=== PATIENT | female | born 1960 | race African-American/Black ===

== ENCOUNTER 2017-02-04 15:50 | Observation (INO) | payer MEDICAID ==
--- NOTE | 2017-02-04 17:46 | ED Physician Documentation ---
PD HPI CHEST PAIN - Stated complaint Stated Complaint: CP/VOMIT - Chief complaint Chief Complaint: Cardiac - History obtained from History obtained from: Patient - History of Present Illness Timing - onset: Other (56-year-old woman with history of perioperative cardiac arrest after abdominal surgery, sounds like due to bradycardia per her description but no other known heart disease presents with 1 week of episodic nonexertional substernal chest pain radiating to the back that lasts for a few minutes at a time. It does not seem to be associated with eating or exertion. It is a sharp pain. She is currently pain-free. She has had about 6 episodes today. When it happens she becomes nauseous and vomits.) Review of Systems Constitutional: reports: Reviewed and negative Nose: denies: Rhinorrhea / runny nose, Congestion Cardiac: reports: Pedal edema (Chronic, unchanged). denies: Palpitations Respiratory: denies: Dyspnea, Cough GI: denies: Abdominal Pain PD PAST MEDICAL HISTORY - Past Medical History Respiratory: Asthma, Pneumonia - Past Surgical History Past Surgical History: Yes General: Cholecystectomy, Appendectomy, Gastric surgery, Hiatal hernia repair /CHEMIST FOOD: section, Hysterectomy - Present Medications Home Medications: Ambulatory Orders Medication Instructions Recorded Confirmed Albuterol Sulfate [Albuterol PRN 09/20/14 09/20/14 Sulfate Hfa] - Allergies Allergies/Adverse Reactions: Allergies Allergy/AdvReac Type Severity Reaction Status Date / Time morphine Allergy Headache Verified 02/04/17 16:21 Penicillins Allergy Rash Verified 02/04/17 16:21 - Social History Does the pt smoke?: Yes Smoking Status: Current some day smoker Does the pt drink ETOH?: No Does the pt have substance abuse?: No PD ED PE NORMAL - Vitals Vital signs reviewed: Yes - General General: Alert and oriented X 3, No acute distress - HEENT HEENT: PERRL, EOMI - Neck Neck: Supple, no meningeal sign, No bony TTP - Cardiac Cardiac: RRR, No murmur - Respiratory Respiratory: No respiratory distress, Clear bilaterally - Abdomen Abdomen: Non tender - Extremities Extremities: No deformity, No calf tenderness / cord - Neuro Neuro: Alert and oriented X 3, Normal speech - Psych Psych: Normal mood, Normal affect Results - Vitals Vitals: Vital Signs - 24 hr 02/04/17 02/04/17 02/04/17 16:18 18:45 19:05 Temperature 36.4 C L Heart Rate 65 64 59 L Respiratory 22 24 22 Rate Blood Pressure 155/76 H 156/100 H 149/90 H O2 Saturation 99 99 100 02/04/17 02/04/17 20:45 20:49 Temperature Heart Rate 62 66 Respiratory 17 15 Rate Blood Pressure 118/55 L 152/82 H O2 Saturation 98 100 Oxygen O2 Source Room air - EKG (time done) 1708 Rate: Rate (enter#) (56) Rhythm: NSR [place]: Normal Intervals: Normal MS QRS: Normal Ischemia: Normal ST segments Computer interpretation: Agree with computer 203 Rate: Rate (enter#) (55) Rhythm: NSR [place]: Normal Intervals: Normal MS QRS: Normal Ischemia: Normal ST segments Computer interpretation: Agree with computer - Labs Labs: Laboratory Tests 02/04/17 02/04/17 02/04/17 18:15 18:15 18:15 WBC 8.3 RBC 4.79 Hgb 13.2 Hct 40.0 MCV 83.6 MCH 27.6 MCHC 33.0 RDW 14.1 Plt Count 288 MPV 8.5 Neut # 4.4 Lymph # 2.6 [place] # 1.0 Eos # 0.1 Baso # 0.1 Absolute Nucleated RBC 0.00 Nucleated RBC % 0.1 Sodium 139 Potassium 3.6 Chloride 103 Carbon Dioxide 26 Anion Gap 10.0 BUN 13 Creatinine 0.7 Estimated GFR (MDRD) 104 Glucose 92 Calcium 9.3 Total Bilirubin 0.5 AST 22 ALT 12 Alkaline Phosphatase 70 Total Creatine Kinase 246 CK-MB (CK-2) 3.4 Troponin I < 0.04 Total Protein 7.8 Albumin 4.2 Globulin 3.6 Albumin/Globulin Ratio 1.2 Lipase 24 - Rads (name of study) 2v chest Radiology: EMP read contemporaneously (NAD) PD MEDICAL DECISION MAKING - ED course ED course: 56-year-old woman with atypical episodic pain, pain-free here with unremarkable EKG and negative biomarkers. Given her risk factors and history of cardiac arrest, I think she would be a good candidate for observation and I spoke with Dr. José, the hospitalist for observation at 7:35 PM. Departure - Departure Disposition: ED Place in Observation Clinical Impression: Atypical chest pain Condition: Stable
--- NOTE | 2017-02-04 18:09 | XRAY Preliminary Report ---
Exam: XR CHEST 2 VIEW PA/LAT IMPRESSION: Normal 2-view chest radiography. [facility] SITE ID: [id number]
--- NOTE | 2017-02-04 18:21 | XRAY Report ---
EXAM: CHEST RADIOGRAPHY EXAM DATE: 02/04/2017 05:59 PM. CLINICAL HISTORY: Chest pain. COMPARISON: 03/22/2016. TECHNIQUE: 2 views. FINDINGS: Lungs/Pleura: No focal opacities evident. No pleural effusion. No pneumothorax. Normal volumes. Mediastinum: Heart and mediastinal contours are unremarkable. Other: Mild scoliosis. IMPRESSION: Normal 2-view chest radiography. [facility] Referring Provider Line: [phone] SITE ID: [id number]
[2017-02-04 18:22] LABS: BASOPHILS # (AUTO) 0.1 10^3/uL (0.0-0.1); BASOPHILS % (AUTO) 1.6 %; EOSINOPHILS # (AUTO) 0.1 10^3/uL (0.0-0.7); EOSINOPHILS % (AUTO) 1.8 %; HGB - HEMOGLOBIN 13.2 g/dL (12.0-16.0); LYMPHOCYTES # (AUTO) 2.6 10^3/uL (1.5-3.5); LYMPHOCYTES % (AUTO) 31.5 %; MEAN CORPUSCULAR HEMOGLOBIN 27.6 pg (27.0-31.0); MEAN CORPUSCULAR VOLUME 83.6 fL (81.0-99.0); MEAN PLATELET VOLUME 8.5 fL (7.9-10.8); MONOCYTES % (AUTO) 12.2 %; NEUTROPHILS # (AUTO) 4.4 10^3/uL (1.5-6.6); NEUTROPHILS % (AUTO) 52.9 %; NUCLEATED RED BLOOD CELLS AUTO 0.1 /100WBC; RED BLOOD COUNT 4.79 10^6/uL (4.20-5.40); RED CELL DISTRIBUTION WIDTH 14.1 % (12.0-15.0); UNCORRECTED WHITE BLOOD COUNT 8.3 x10^3/uL; WHITE BLOOD COUNT 8.3 x10^3/uL (4.8-10.8)
[2017-02-04 18:43] LABS: ALBUMIN/GLOBULIN RATIO 1.2 (1.0-2.2); BILIRUBIN,TOTAL 0.5 mg/dL (0.2-1.0); CALCIUM 9.3 mg/dL (8.5-10.3); CREATININE 0.7 mg/dL (0.4-1.0); POTASSIUM 3.6 mmol/L (3.5-5.0); TOTAL PROTEIN 7.8 g/dL (6.7-8.2)
[2017-02-04 18:48] LABS: TROPONIN I < 0.04 ng/mL (<0.49)
[2017-02-04 18:49] LABS: CREATINE KINASE MB 3.4 ng/mL (0.6-6.3)
[2017-02-04] MEDS ORDERED: ASPIRIN CHEW 81 MG TABLET PO STA (19:36)
[2017-02-04] MEDS ORDERED: ASPIRIN CHEW 81 MG TABLET ONE (19:47)
[2017-02-04] MEDS ORDERED: NITROGLYCERIN SL 0.4 MG TABLET SL STA ×2 (20:40→20:55)
[2017-02-04] MEDS ORDERED: PROCHLORPERAZINE 10 MG/2 ML VIAL IVP PRN (20:44)
[2017-02-04] MEDS ORDERED: ZOLPIDEM 5 MG TABLET PO PRN (20:44)
[2017-02-04] MEDS: NITROGLYCERIN 2% PASTE TOP SCH (21:24)
[2017-02-04] MEDS: ACETAMINOPHEN 325 MG TABLET PO PRN (21:25)
[2017-02-04] MEDS ORDERED: IOPAMIDOL-300 100 ML VIAL ONE (21:25)
[2017-02-04] MEDS ORDERED: IOPAMIDOL-300 100 ML VIAL IVP ONE (22:00)
[2017-02-05] MEDS: SODIUM CHLORIDE FLUSH 0.9% 10 ML SYRINGE IVP SCH ×3 (00:20→13:40)
[2017-02-05] MEDS: NICOTINE 14 MG PATCH TOP SCH ×2 (00:28→09:14)
[2017-02-05] MEDS: ALBUTEROL NEB 2.5 MG/3 ML INH PRN ×2 (00:40→07:25)
--- NOTE | 2017-02-05 00:54 | HISTORY & PHYSICAL EXAMINATION ---
DATE OF ADMISSION: 02/04/2017 HISTORY OF PRESENT ILLNESS: This is a 56-year-old white female with a history of smoking, asthma on p.r.n. inhaler as her only med, and a history of "3 intraoperative cardiac arrest": the patient reports that during a cholecystectomy she had a cardiac arrest, during appendectomy she had a cardiac arrest and during a ventral hernia surgery she had a cardiac arrest. She does describes having only EKGs and possibly one stress test only. The exact diagnoses with these "cardiac arrest" is not known. The patient remembers having a stress test approximately 9 years ago for unknown reasons and states that this was normal. She has never had an EP study or a coronary angiogram. The patient presents with a 1-week history of chest pain. She states that she develops a stabbing type of chest pain about the size of a silver dollar in the lower sternal area, which radiates through to her back that is associated with nausea. These would occur approximately once a day over the past 1 week until approximately 3-4 days ago, where they were occurring more frequently and associated with nausea and vomiting, possibly once with "coffe-ground appearance ". The longest duration was approximately 5 minutes. There was no associated body position, no specific activity, or p.o. intake that would lead to these episodes. She did not try taking any aspirin, nitrates, or antacids for these. With the episodes in the last 2 days there is also a more wide feeling of chest pressure across the precordium along with the more severe localized pain. Because the symptoms were longer and more frequent she presented to the emergency room today at the advice of her doctor's office whom she called today. In the emergency room, she was describing a 1/10 chest pain and as I was completing my evaluation in the emergency room she stated just suddenly that the discomfort increased to a 7/10 and she had to go from a sitting upright position on the gurney to lying down, which relieved her symptoms minimally. A sublingual nitroglycerin was then ordered to be given. There are no associated palpitations, shortness of breath, dizziness with these. She cannot remember if there is diaphoresis with these. Approximately 10 or more years ago, there was some similar type of stabbing chest pain, for which she was given prescriptions for sublingual nitroglycerin, but she no longer has these. MEDICATIONS AT HOME: Only albuterol inhaler. ALLERGIES: 1. MORPHINE. 2. PENICILLIN. SOCIAL HISTORY: She is a smoker of 1/2-1 pack a day. She drinks no alcohol. She denies any illicit drug use. REVIEW OF SYSTEMS: A comprehensive review of systems was performed and the pertinent positives and negatives are stated in the HPI and the remainder of the ROS is negative. FAMILY HISTORY: There is no history of diabetes or coronary disease. SURGICAL HISTORY: Cholecystectomy, appendectomy, ventral hernia repair, C- section, hysterectomy, gastric bypass. PHYSICAL EXAMINATION: GENERAL: Obese female, sitting upright in a gurney with one leg over the side. She is in no obvious distress initially and then suddenly developed 7/10 lower sternal chest pain without associated symptoms. VITAL SIGNS: Blood pressure 152/82, pulse 66 in sinus rhythm, afebrile. HEENT: Unremarkable except she is edentulous. NECK: Shows no JVD in a vertical position. No carotid bruits, no thyromegaly. CHEST: Lungs clear. No wheezing. HEART: Sounds normal. No audible murmurs. No heave or gallop. Normal bowel sounds. ABDOMEN: Soft. No guarding or rebound. No palpable organomegaly. EXTREMITIES: No clubbing, cyanosis, or edema. NEUROLOGIC: Neurologically grossly intact. EKG: Normal sinus rhythm and there is a biphasic T-wave in V4 and V5, otherwise within normal limits, and an EKG was ordered to be done during the chest pain and shows unchanged biphasic T waves in V4 and V5 and no other changes. LABS: Normal CMP, normal lipase. Troponin not detectable. Normal liver tests normal; normal CBC and differential no INR was done. Chest x-ray, normal cardiac size, no pulmonary pathology. ASSESSMENT/DIAGNOSES: 1. Chest pain. Rule out angina. Rule out epigastric etiology such as ulcer or pancreatitis given its associated vomiting and radiation through to the back. Aortic aneurysm or dissection is doubtful given no risk factors for this, such as hypertension or family history of cardiovascular disease. 2. History of "cardiac arrest" with 3 different abdominal surgeries. The final diagnosis of these descriptions is not known. 3. Smoking. 4. Asthma, on p.r.n. inhaler. PLAN: Place the patient in Observation status on telemetry. Cycle troponins to rule out [place]. Follow her EKG for changes. Start the patient on sublingual nitroglycerin p.r.n. chest pain or pressure as well as start topical nitrates. Continue aspirin, which she received 1 dose of in the emergency room. Obtain abdominal and chest CT with and without contrast to evaluate for pathology in this area between chest and abdomen. Stress testing is then planned to rule out angina which could be accelerating in nature. DVT prophylaxis will be done with SCDs, no Lovenox in case of diagnosis of ulcer so as not to promote bleeding. Check fasting lipids. Smoking cessation is advised. JOB #: [id number] EXT JOB #:[id number] [id number]
--- NOTE | 2017-02-05 01:05 | CT Preliminary Report ---
Exam: CT ABDOMEN W/WO IMPRESSION: 1. Status post gastric bypass and cholecystectomy. There is no evidence of bowel obstruction, fluid c ollection or acute inflammatory process. 2. Left adrenal gland adenoma. [facility] SITE ID: [id number]
--- NOTE | 2017-02-05 01:07 | CT Report ---
EXAM: CT ABDOMEN WITHOUT AND WITH CONTRAST EXAM DATE: 02/04/2017 10:09 PM. HISTORY: Epigastric pain thru to back, vomiting. COMPARISON: None. TECHNIQUE: Routine helical CT imaging was performed through the abdomen before and after administrati on of IV contrast: 100 mL Isovue-300. Enteric contrast: No. Reconstruction: Coronal and sagittal. In accordance with CT protocol optimization, one or more of the following dose reduction techniques w ere utilized for this exam: automated exposure control, adjustment of mA and/or KV based on patient s ize, or use of iterative reconstructive technique. FINDINGS: Lung Bases: Unremarkable. Liver: Normal. No masses. Gallbladder/Bile Ducts: The gallbladder has been removed. No bile duct dilatation. Spleen: Normal. Pancreas: Normal. No masses or ductal obstruction. Adrenal Glands: There is a 3.8 cm left adrenal gland mass with an attenuation value of -15 Hounsfield units. The right adrenal gland is normal. Kidneys: There is a 2.2 cm right renal cyst. No stones, suspicious renal mass or hydronephrosis. Ther e is no retroperitoneal lymphadenopathy. Peritoneal Cavity/Bowel: Normal. No free fluid, free air or adenopathy. No masses or acute inflammato ry process. Vasculature: No aortic aneurysm. Tortuous iliac arteries. Bones: No significant abnormality. Other: Status post gastric bypass. IMPRESSION: 1. Status post gastric bypass and cholecystectomy. There is no evidence of bowel obstruction, fluid c ollection or acute inflammatory process. 2. Left adrenal gland adenoma. [facility] Referring Provider Line: [phone] SITE ID: [id number]
--- NOTE | 2017-02-05 01:09 | CT Preliminary Report ---
Exam: CT CHEST W/WO IMPRESSION: Unremarkable chest CT. [facility] SITE ID: [id number]
--- NOTE | 2017-02-05 01:11 | CT Report ---
EXAM: CT CHEST EXAM DATE: 02/04/2017 10:09 PM. CLINICAL HISTORY: Chest pain. COMPARISONS: None. TECHNIQUE: Routine helical CT imaging was performed through the chest before and after contrast. IV c ontrast: 100 mL Isovue-300. Reconstructions: Coronal and sagittal. In accordance with CT protocol optimization, one or more of the following dose reduction techniques w ere utilized for this exam: automated exposure control, adjustment of mA and/or KV based on patient s ize, or use of iterative reconstructive technique. FINDINGS: Lungs/Pleura: No nodules, bronchial thickening, consolidation, or edema. Pulmonary vasculature is nor mal. No pericardial or pleural effusion. No pneumothorax. Mediastinum: Normal. No adenopathy or masses. The heart and great vessels are normal. Bones: Unremarkable. Visualized Abdomen: Status post gastric bypass. There is a left adrenal gland low density mass compat ible with a benign adenoma. Other: None. IMPRESSION: Unremarkable chest CT. [facility] Referring Provider Line: [phone] SITE ID: [id number]
[2017-02-05 03:18] LABS: INR 1.1 (0.8-1.2); PT - PROTHROMBIN TIME 12.8 secs (9.9-12.6)
[2017-02-05 03:22] LABS: CALCIUM 8.5 mg/dL (8.5-10.3); CREATININE 0.6 mg/dL (0.4-1.0); MAGNESIUM 1.9 mg/dL (1.7-2.8); POTASSIUM 3.3 mmol/L (3.5-5.0)
[2017-02-05 03:28] LABS: CHOL/HDL RATIO 4.3 (<4.4); CHOLESTEROL 177 mg/dL; HDL CHOLESTEROL 41 mg/dL; LDL/HDL RATIO 2.8 (<4.4); TRIGLYCERIDES 102 mg/dL; VLDL CHOLESTEROL 20 mg/dL
[2017-02-05] MEDS: NITROGLYCERIN 2% PASTE TOP SCH ×2 (06:47→14:48)
[2017-02-05] MEDS: SODIUM CHLORIDE FLUSH 0.9% 10 ML SYRINGE IVP PRN ×3 (06:47→11:26)
[2017-02-05] MEDS: ACETAMINOPHEN 325 MG TABLET PO PRN (07:00)
[2017-02-05] MEDS ORDERED: PANTOPRAZOLE 40 MG VIAL IVP SCH (07:00)
[2017-02-05] MEDS ORDERED: POLYETHYLENE GLYCOL 3350 17 GM PACKET PO SCH (09:00)
[2017-02-05] MEDS ORDERED: SUCRALFATE 1 GM/10 ML UDC PO ONE (11:00)
[2017-02-05] MEDS ORDERED: SUCRALFATE 1 GM/10 ML UDC PO SCH (11:00)
[2017-02-05] MEDS ORDERED: FAMOTIDINE 20 MG TABLET PO SCH ×2 (13:00→21:00)
--- NOTE | 2017-02-05 16:28 | Discharge Plan ---
Discharge Plan Disposition: Home, Self Care Prescriptions: Nitroglycerin 0.4 mg SL Q5MIN PRN #14 tab.subl PRN Reason: Chest Pain Aspirin [Aspirin EC] 81 mg PO DAILY #10 tablet. Pantoprazole Sodium [Protonix] 20 mg PO DAILY #10 tablet. Diet: Cardiac Activity Restrictions: Activity as Tolerated Shower Restrictions: No Driving Restrictions: No Weight Bearing: Partial Weight Additional Instructions or Follow Up instructions: The patient is to followup with PCP this week and needs to be scheduled for a stress test. No Smoking: If you smoke, Please STOP! Call for help. Follow-up with: Cheyenne Bledsoe ARNP [Primary Care Provider] -
--- NOTE | 2017-02-05 16:46 | DISCHARGE SUMMARY ---
Discharge Summary Admit Date: 02/04/17 Discharge Date: 02/05/17 Discharging Provider: Dr. Daniela Gallegos Primary Care Provider: Cheyenne Bledsoe Code Status: Attempt Resuscitation Condition at Discharge: Stable Discharge Disposition: 01 Home, Self Care - DIAGNOSES Admission Diagnoses: Chest Pain, GERD Discharge Diagnoses with Status of Each Condition: Chest Pain ruled out for MD, GERD - HPI History of Present Illness: The patient was admitted with chest pain all three troponins came back at < 0.04. Her chest pain was relieved with carafate and pepcid. Any asthma exacerbation could have been treated with albuterol prn. It did not appear that she had an asthma exacerbation during this admit. Her CT scan of the abdomen showed S/P gastric bypass and cholecystectomy. She received 60 mEq of KCl before discharge. There is no evidence of bowel obstruction, fluid collection, or acute inflammatory process. An incidentaloma was found in the left adrenal gland that will need a further work-up as an out patient. The CT of the chest was unremarkable.The patient was given a prescription for aspirin 81 mg po qd (# 10), protonix 20 mg 1 tab po everyday (#10), and SL NTG 0.4 mg q 5 min prn chest pain (#14). The patient improved and was discharged to home. The patient will follow-up with PCP this week and needs a stress test as an out patient. The patient should be followed up by an die cutter apprentice as an out patient to further work-up the left adrenal adenoma. - HOSPITAL COURSE Hospital Course: The patient was admitted with chest pain all three troponins came back at < 0.04. Her chest pain was relieved with carafate and pepcid. Any asthma exacerbation could have been treated with albuterol prn. It did not appear that she had an asthma exacerbation during this admit. Her CT scan of the abdomen showed S/P gastric bypass and cholecystectomy. She received 60 mEq of KCl before discharge. There is no evidence of bowel obstruction, fluid collection, or acute inflammatory process. An incidentaloma was found in the left adrenal gland that will need a further work-up as an out patient. The CT of the chest was unremarkable.The patient was given a prescription for aspirin 81 mg po qd (# 10), protonix 20 mg 1 tab po everyday (#10), and SL NTG 0.4 mg q 5 min prn chest pain (#14). The patient improved and was discharged to home. The patient will follow-up with PCP this week and needs a stress test as an out patient. The patient should be followed up by an die cutter apprentice as an out patient to further work-up the left adrenal adenoma. - ALLERGIES Allergies/Adverse Reactions: Allergies Allergy/AdvReac Type Severity Reaction Status Date / Time morphine Allergy Headache Verified 02/04/17 16:21 Penicillins Allergy Rash Verified 02/04/17 16:21 - MEDICATIONS Home Medications: Ambulatory Orders Medication Instructions Recorded Confirmed Albuterol Sulfate [Albuterol 2 puffs INH Q4H PRN 09/20/14 02/05/17 Sulfate Hfa] Aspirin [Aspirin EC] 81 mg PO DAILY #10 tablet. 02/05/17 Nitroglycerin 0.4 mg SL Q5MIN PRN #14 tab.subl 02/05/17 Pantoprazole Sodium [Protonix] 20 mg PO DAILY #10 tablet. 02/05/17 - PHYSICAL EXAM AT DISCHARGE General Appearance: positive: No acute distress, Alert Eyes Bilateral: positive: Normal inspection, PERRL Neck: positive: Nml inspection, No JVD Respiratory: positive: Chest non-tender, No respiratory distress, Breath sounds nml Cardiovascular: positive: Regular rate & rhythm, No murmur, No gallop Peripheral Pulses: positive: 2+ Abdomen: positive: Non-tender, Nml bowel sounds, No distention Skin: positive: Color nml Extremities: positive: Non-tender, Full ROM Neurologic/Psychiatric: positive: Oriented x3, CN's nml (2-12), Motor nml, Sensation nml, Mood/affect nml - LABS Result Diagrams: 02/04/17 18:15 02/05/17 03:01 - FOLLOW UP Follow Up: Follow-up with PCP this week. The patient needs a stress test shaneka as an out- patient. She needs an endocrinology consult to further work-up the left adrenaloma as an out patient. - TIME SPENT Time Spent in Discharge (Minutes): 60
[2017-02-05 17:06] VITALS: BP 132/68
[2017-02-05] MEDS ORDERED: POTASSIUM CHLORIDE 20 MEQ TABLET PO ONE (17:15)
== END 2017-02-05 17:40 | disposition home or self-care (01) ==
LOC: ED 15:50 → OBS 20:44
PROVIDERS: ADMIT Internal Medicine
DX: R07.89 Other chest pain (principal); K21.9 Gastro-esophageal reflux disease without esophagitis; Z86.74 Personal history of sudden cardiac arrest; J45.909 Unspecified asthma, uncomplicated; F17.210 Nicotine dependence, cigarettes, uncomplicated; E66.9 Obesity, unspecified; Z90.49 Acquired absence of other specified parts of digestive tract; Z98.84 Bariatric surgery status; Z68.41 Body mass index [BMI] 40.0-44.9, adult
CPT/HCPCS: 36415; 71020; 71270; 74170; 80048; 80053; 80061; 82550; 82553; 83690; 83735; 84484; 85025; 85610; 93005; 94640; 96374; 96375; 99284; A9270; G0378; J7613; Q9967

== ENCOUNTER 2017-02-11 14:30 | Outpatient (CLI) | payer MEDICAID | END 2017-02-11 14:45 | disposition home or self-care (01) | LOC: RT.N 14:30 | PROVIDERS: ATTEND Family Medicine | DX: R07.89 Other chest pain (principal) | CPT/HCPCS: 93005 ==

== ENCOUNTER 2017-03-22 10:16 | Outpatient (CLI) | payer MEDICAID | END 2017-03-22 10:17 | disposition critical access hospital (66) | LOC: EMS 10:16 | PROVIDERS: ATTEND Surgery | DX: M25.572 Pain in left ankle and joints of left foot (principal) | CPT/HCPCS: A0425; A0427 ==

== ENCOUNTER 2017-03-22 10:47 | Emergency (ER) | payer MEDICAID ==
[2017-03-22] MEDS ORDERED: HYDROcod/ACETAM 5/325 MG TABLET PO STA (12:32)
--- NOTE | 2017-03-22 12:40 | XRAY Preliminary Report ---
Exam: XR FOOT 3 VIEW LT IMPRESSION: 1. No acute abnormality in the left foot/ankle. 2. Degenerative changes described above. [facility] SITE ID: [id number]
--- NOTE | 2017-03-22 12:40 | XRAY Preliminary Report ---
Exam: XR ANKLE 3 VIEW LT IMPRESSION: 1. No acute abnormality in the left foot/ankle. 2. Degenerative changes described above. [facility] SITE ID: [id number]
--- NOTE | 2017-03-22 12:43 | XRAY Report ---
EXAMS: LEFT FOOT AND ANKLE RADIOGRAPHY EXAM DATE: 03/22/2017 12:08 PM. CLINICAL HISTORY: Swelling/pain/trauma. COMPARISON: None. TECHNIQUE: 3 views each foot and ankle. FINDINGS: Bones: Bones are intact without evidence of a fracture. Plantar calcaneal heel spur measures 7 mm. Joints: Normal joint alignment. There are osteophytes and degenerative sclerosis at the tarsometatars al joints. Hallux valgus is present. Small degenerative osteophytes at the tibiotalar joint. Soft Tissues: Normal. No soft tissue swelling. IMPRESSION: 1. No acute abnormality in the left foot/ankle. 2. Degenerative changes described above. [facility] Referring Provider Line: [phone] SITE ID: [id number]
[2017-03-22] MEDS ORDERED: HYDROcod/ACETAM 5/325 MG TABLET ONE (12:44)
--- NOTE | 2017-03-22 13:18 | ED Physician Documentation ---
History of Present Illness - Stated complaint Stated Complaint: L ANKLE PX - Chief complaint Chief Complaint: Trauma Ext - History obtained from History obtained from: Patient (pt reports that yesterday she tripped over a leg of a chair (2 different times) and hurt her left ankle. Painful walking. No prior injury.) Review of Systems Constitutional: denies: Fever, Chills GI: denies: Nausea : denies: Dysuria, Frequency Skin: denies: Rash, Lesions, Laceration (s) Musculoskeletal: reports: Extremity pain (left ankle), Joint pain (left ankle), Pain with weight bearing. 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, Hysterectomy - Present Medications Home Medications: Ambulatory Orders Medication Instructions Recorded Confirmed Albuterol Sulfate [Albuterol 2 puffs INH Q4H PRN 09/20/14 03/22/17 Sulfate Hfa] Aspirin [Aspirin EC] 81 mg PO DAILY #10 tablet.dr 02/05/17 03/22/17 Nitroglycerin 0.4 mg SL Q5MIN PRN #14 tab.subl 02/05/17 03/22/17 HYDROcod/ACETAM 5/325 [[place]de 5/325] 1 each PO Q6H PRN #5 tablet 03/22/17 - Allergies Allergies/Adverse Reactions: Allergies Allergy/AdvReac Type Severity Reaction Status Date / Time morphine Allergy Headache Verified 03/22/17 11:03 Penicillins Allergy Rash Verified 03/22/17 11:03 - Social History Does the pt smoke?: Yes Smoking Status: Current every day smoker Does the pt drink ETOH?: No Does the pt have substance abuse?: No - Immunizations Immunizations are current?: Yes - POLST Patient has POLST: No PD ED PE NORMAL - Vitals Vital signs reviewed: Yes - General General: Alert and oriented X 3 - Cardiac Cardiac: Strong equal pulses (DP) - Respiratory Respiratory: No respiratory distress - Derm Derm: Normal color, Warm and dry, No rash - Extremities Extremities: No deformity, No edema. No: No tenderness to palpate (TTP over the distal tibia of the left foot), Normal ROM s pain (decreased ROm secondary to pain ), No calf tenderness / cord - Neuro Neuro: Alert and oriented X 3, No sensory deficit (sensation intact to light touch to the left LE) Results - Vitals Vitals: Vital Signs - 24 hr 03/22/17 11:00 Temperature 36.8 C Heart Rate 56 L Respiratory 15 Rate Blood Pressure 132/78 H O2 Saturation 95 Oxygen O2 Source Room air - Rads (name of study) foot and ankle Radiology: Final report received PD MEDICAL DECISION MAKING - ED course Complexity details: d/w patient ED course: no bony abnormality. Pt is N/V intact. we discussed RICE treatment. gave crutches for comfort. F/U as needed Departure - Departure Disposition: 01 Home, Self Care Clinical Impression: Ankle injury Condition: Good Instructions: ED Sprain Ankle W X Ray Follow-Up: primary,care provider [Other] Prescriptions: HYDROcod/ACETAM 5/325 [Hyde 5/325] 1 each PO Q6H PRN #5 tablet PRN Reason: Pain Comments: use the crutches like we discussed. Return to the ER for any new or worsening symptoms.
[2017-03-22 13:34] VITALS: BP 121/74
== END 2017-03-22 13:41 | disposition home or self-care (01) ==
LOC: EDUNIT# → ED 10:47
DX: S99.912A Unspecified injury of left ankle, initial encounter (principal); W01.0XXA Fall on same level from slipping, tripping and stumbling without subsequent striking against object, initial encounter; Y92.019 Unspecified place in single-family (private) house as the place of occurrence of the external cause; J45.909 Unspecified asthma, uncomplicated; F17.200 Nicotine dependence, unspecified, uncomplicated
CPT/HCPCS: 73610; 73630; 99283; A9270

== ENCOUNTER 2017-07-11 16:21 | Outpatient (CLI) | payer MEDICAID | END 2017-07-11 16:22 | disposition short-term general hospital (02) | LOC: EMS 16:21 | PROVIDERS: ATTEND Surgery | DX: R07.89 Other chest pain (principal); M25.512 Pain in left shoulder | CPT/HCPCS: A0425; A0427; A0888 ==

== ENCOUNTER 2017-10-17 19:45 | Emergency (ER) | payer MEDICAID ==
--- NOTE | 2017-10-17 19:59 | ED Physician Documentation ---
PD HPI ABD PAIN - Stated complaint Stated Complaint: FEMALE - Chief complaint Chief Complaint: Abd Pain - History obtained from History obtained from: Patient - History of Present Illness Timing - onset: How many days ago (2) Timing - duration: Days (2) Timing - details: Gradual onset, Still present, Waxing and waning Quality: Aching, Sharp, Pain Location: RLQ (lower abd/pelvic area and to top of right thigh. Worse with walking and lifting leg. She says it feels tight in the RLQ, "as if something is growing in there".) Radiation: Lower back, Other (right thigh anteriorly.) Improved by: Laying still. No: Eating Worsened by: Moving (flexion of right hip), Other (walking). No: Eating, Breathing, Palpation Associated symptoms: No: Fever, Nausea, Vomiting, Constipation, Dysuria, Hematuria, Chest pain, Near syncope / syncope Similar symptoms before: Has not had sx before Recently seen: Not recently seen Review of Systems Constitutional: reports: Myalgias. denies: Fever, Chills Nose: denies: Rhinorrhea / runny nose, Congestion Throat: denies: Sore throat Cardiac: denies: Chest pain / pressure Respiratory: denies: Dyspnea, Cough GI: reports: Abdominal Pain. denies: Abdominal Swelling, Nausea, Constipation, Diarrhea : denies: Dysuria, Frequency, Discharge Skin: denies: Rash, Lesions Musculoskeletal: reports: Back pain Neurologic: denies: Generalized weakness, Focal weakness, Numbness, Near syncope , Altered mental status, Headache Endocrine: denies: Weight loss Immunocompromised: denies: Immunocompromised PD PAST MEDICAL HISTORY - Past Medical History Past Medical History: Yes Cardiovascular: None Respiratory: Asthma, Pneumonia Neuro: None Endocrine/Autoimmune: None GI: None CONTRACT NEGOTIATION MANAGER: None : None HEENT: None Psych: None Musculoskeletal: None Derm: None - Past Surgical History Past Surgical History: Yes General: Cholecystectomy, Appendectomy, Gastric surgery, Hiatal hernia repair /CONTRACT NEGOTIATION MANAGER: section, Hysterectomy - Present Medications Home Medications: Ambulatory Orders Medication Instructions Recorded Confirmed Albuterol Sulfate [Albuterol 2 puffs INH Q4H PRN 09/20/14 03/22/17 Sulfate Hfa] Aspirin [Aspirin EC] 81 mg PO DAILY #10 pretty. 02/05/17 03/22/17 Nitroglycerin 0.4 mg SL Q5MIN PRN #14 tab.subl 02/05/17 03/22/17 HYDROcod/ACETAM 5/325 [[place] 5/325] 1 each PO Q6H PRN #5 tablet 03/22/17 Dexamethasone [Decadron] 4 mg PO DAILY #5 tablet 10/17/17 Docusate Sodium 100 mg PO DAILY #30 capsule 10/17/17 Naproxen 375 mg PO BID #20 tablet 10/17/17 Oxycodone HCl/Acetaminophen 1 each PO Q6H PRN #20 tablet 10/17/17 [Percocet 5-325 mg Tablet] - Allergies Allergies/Adverse Reactions: Allergies Allergy/AdvReac Type Severity Reaction Status Date / Time morphine Allergy Headache Verified 10/17/17 19:56 Penicillins Allergy Rash Verified 10/17/17 19:56 - Social History Does the pt smoke?: Yes Smoking Status: Current every day smoker Does the pt drink ETOH?: No Does the pt have substance abuse?: No - Family History Family history: reports: Non contributory - Immunizations Immunizations are current?: Yes - POLST Patient has POLST: No PD ED PE NORMAL - Vitals Vital signs reviewed: Yes - General General: Alert and oriented X 3, Well developed/nourished, Other (appears in pain) - HEENT HEENT: Pharynx benign - Neck Neck: Supple, no meningeal sign, No adenopathy, No JVD - Cardiac Cardiac: RRR, No murmur - Respiratory Respiratory: Clear bilaterally - Abdomen Abdomen: Normal bowel sounds, Soft, Non distended, No organomegaly, Other ( redundant tissue with large pannus, but no signs of skin infection under the pannus nor with palpation. Inguinal reas normal for age. ) - Female Female : Deferred - Rectal Rectal: Deferred - Back Back: No CVA TTP - Derm Derm: Normal color, No rash - Extremities Extremities: No deformity, No tenderness to palpate, No edema. No: Normal ROM s pain (right hip/inguinal pain with flexion and walking) - Neuro Neuro: Alert and oriented X 3, No motor deficit, Normal speech - Psych Psych: Normal mood, Normal affect Results - Vitals Vitals: Vital Signs - 24 hr 10/17/17 10/17/17 10/17/17 19:54 21:00 21:12 Temperature 37.0 C Heart Rate 73 66 Respiratory 18 18 19 Rate Blood Pressure 138/69 H 146/79 H O2 Saturation 100 98 10/17/17 10/17/17 10/17/17 21:29 22:22 22:49 Temperature Heart Rate 55 L 58 L Respiratory 18 19 19 Rate Blood Pressure 125/69 112/56 L O2 Saturation 97 99 10/18/17 00:04 Temperature Heart Rate 60 Respiratory 20 Rate Blood Pressure 137/70 H O2 Saturation 99 Oxygen O2 Source Room air - Labs Labs: Laboratory Tests 10/17/17 10/17/17 10/17/17 21:03 21:03 22:30 WBC 11.0 H RBC 4.76 Hgb 13.1 Hct 40.3 MCV 84.8 MCH 27.6 MCHC 32.6 RDW 15.1 H Plt Count 295 MPV 8.4 Neut # (Auto) 7.3 H Lymph # (Auto) 2.3 [place] # (Auto) 1.2 H Eos # (Auto) 0.1 Baso # (Auto) 0.1 Absolute Nucleated RBC 0.01 Nucleated RBC % 0.1 Sodium 135 Potassium 3.6 Chloride 102 Carbon Dioxide 25 Anion Gap 8.0 BUN 15 Creatinine 0.7 Estimated GFR (MDRD) 104 Glucose 91 Calcium 9.3 Total Bilirubin 0.7 AST 21 ALT 13 Alkaline Phosphatase 72 Total Protein 8.4 H Albumin 4.0 Globulin 4.4 H Albumin/Globulin Ratio 0.9 L Lipase 27 Urine Color YELLOW Urine Clarity CLEAR Urine pH 6.0 Ur Specific [place] 1.010 Urine Protein NEGATIVE Urine Glucose (UA) NEGATIVE Urine Ketones NEGATIVE Urine Occult Blood NEGATIVE Urine Nitrite NEGATIVE Urine Bilirubin NEGATIVE Urine Urobilinogen 1 (NORMAL) Ur Leukocyte Esterase NEGATIVE Ur Microscopic Review NOT INDICATED Urine Culture Comments NOT INDICATED - Rads (name of study) abd/pelvic CT Radiology: Prelim report reviewed (no acute process identified. ) PD MEDICAL DECISION MAKING - ED course Complexity details: reviewed results (abd CT without findings to support cause of pain. ), re-evaluated patient (still hurts with hip flexion and pain with walking to bathroom. Given normal labs and imaging, presume muscular such as psoas muscle. CT would have seen abscess, hip fracture, obstruction, hernia, renal stone as causes and these were negative. She is post-appy and hyst. No rash nor sores on skin to suggest infection. ), considered differential, d/w patient - Sepsis Event Vital Signs: Vital Signs - 24 hr 10/17/17 10/17/17 10/17/17 19:54 21:00 21:12 Temperature 37.0 C Heart Rate 73 66 Respiratory 18 18 19 Rate Blood Pressure 138/69 H 146/79 H O2 Saturation 100 98 10/17/17 10/17/17 10/17/17 21:29 22:22 22:49 Temperature Heart Rate 55 L 58 L Respiratory 18 19 19 Rate Blood Pressure 125/69 112/56 L O2 Saturation 97 99 10/18/17 00:04 Temperature Heart Rate 60 Respiratory 20 Rate Blood Pressure 137/70 H O2 Saturation 99 Oxygen O2 Source Room air Departure - Departure Disposition: 01 Home, Self Care Clinical Impression: Abdominal pain Qualifiers: Abdominal location: right lower quadrant Qualified Code(s): R10.31 - Right lower quadrant pain Strain of right psoas muscle Qualifiers: Encounter type: initial encounter Qualified Code(s): S76.011A - Strain of muscle, fascia and tendon of right hip, initial encounter Condition: Stable Record reviewed to determine appropriate education?: Yes Instructions: ED Abdominal Pain Unkn Cause Follow-Up: Cheyenne Bledsoe ARNP [Primary Care Provider] - Prescriptions: Dexamethasone [Decadron] 4 mg PO DAILY #5 tablet Docusate Sodium 100 mg PO DAILY #30 capsule Naproxen 375 mg PO BID #20 tablet Oxycodone HCl/Acetaminophen [Percocet 5-325 mg Tablet] 1 each PO Q6H PRN #20 tablet PRN Reason: Pain Comments: At this point there is no certain cause of your pain demonstrated on CT scan or urine test. Clinically it would seem then like a muscle in the lower abdomen given the location and the pain worsening with walking and hip flexion. Use naproxen twice daily for the next 7-10 days. Drink lots of fluids. Decadron also for inflammation daily for 5 more days. Add Tylenol or oxycodone if needed for pain. Take a daily stool softener so you do not get constipated. Recheck if not improving over the next few days. Recheck if other symptoms develop to change the picture. Discharge Date/Time: 10/18/17 00:04
[2017-10-17] MEDS ORDERED: KETOROLAC 30 MG/ML VIAL IVP STA (20:12)
[2017-10-17] MEDS ORDERED: fentaNYL 100 MCG/2 ML VIAL IVP STA (20:12)
[2017-10-17] MEDS ORDERED: ONDANSETRON 4 MG/2 ML VIAL IVP STA (20:12)
[2017-10-17] MEDS ORDERED: IOPAMIDOL-300 100 ML VIAL ONE (20:36)
[2017-10-17 21:14] LABS: BASOPHILS # (AUTO) 0.1 10^3/uL (0.0-0.1); BASOPHILS % (AUTO) 0.9 %; EOSINOPHILS # (AUTO) 0.1 10^3/uL (0.0-0.7); EOSINOPHILS % (AUTO) 0.7 %; HGB - HEMOGLOBIN 13.1 g/dL (12.0-16.0); LYMPHOCYTES # (AUTO) 2.3 10^3/uL (1.5-3.5); LYMPHOCYTES % (AUTO) 20.7 %; MEAN CORPUSCULAR HEMOGLOBIN 27.6 pg (27.0-31.0); MEAN CORPUSCULAR HGB CONC 32.6 g/dL (32.0-36.0); MEAN CORPUSCULAR VOLUME 84.8 fL (81.0-99.0); MEAN PLATELET VOLUME 8.4 fL (7.9-10.8); MONOCYTES # (AUTO) 1.2 10^3/uL (0.0-1.0); MONOCYTES % (AUTO) 11.3 %; NEUTROPHILS # (AUTO) 7.3 10^3/uL (1.5-6.6); NEUTROPHILS % (AUTO) 66.4 %; PLT - PLATELET COUNT 295 10^3/uL (130-450); RED BLOOD COUNT 4.76 10^6/uL (4.20-5.40); RED CELL DISTRIBUTION WIDTH 15.1 % (12.0-15.0)
[2017-10-17] MEDS ORDERED: IOPAMIDOL-300 100 ML VIAL IVP ONE (21:19)
[2017-10-17 21:23] LABS: ALBUMIN/GLOBULIN RATIO 0.9 (1.0-2.2); BILIRUBIN,TOTAL 0.7 mg/dL (0.2-1.0); CALCIUM 9.3 mg/dL (8.5-10.3); CREATININE 0.7 mg/dL (0.4-1.0); TOTAL PROTEIN 8.4 g/dL (6.7-8.2)
--- NOTE | 2017-10-17 21:52 | CT Report ---
Procedure Date: 10/17/2017 Accession Number: [id number] / [id number] Procedure: CT - Abdomen/Pelvis W/ CPT Code: FULL RESULT: EXAM: CT ABDOMEN AND PELVIS EXAM DATE: 10/17/2017 09:33 PM. CLINICAL HISTORY: Right lower abd pain for 3 days. COMPARISONS: 02/04/2017. TECHNIQUE: Routine helical CT imaging was performed through the abdomen and pelvis. IV contrast: ISOVUE 300 100mL. Enteric contrast: No. Reconstructions: Coronal and sagittal. In accordance with CT protocol optimization, one or more of the following dose reduction techniques were utilized for this exam: automated exposure control, adjustment of mA and/or KV based on patient size, or use of iterative reconstructive technique. FINDINGS: Lung Bases: Unremarkable. Liver: Normal. No masses. Gallbladder/Bile Ducts: Surgically absent gallbladder. Common bile left measures 1 cm in diameter which may be related to prior cholecystectomy and appears similar compared to prior. No abnormal intrahepatic bile duct dilation. Spleen: Normal. Pancreas: Normal. Adrenal Glands: Left adrenal mass series 3 image 22 measuring 4.3 x 3 cm, previous exam showed internal fat density consistent with benign etiology. The right adrenal gland is unremarkable. Kidneys: Stable exophytic right renal cortical cyst series 3 image 34. Negative for hydronephrosis. Peritoneal Cavity/Bowel: Previous gastric bypass surgery. Redundant sigmoid colon. No free air or fluid. No bowel obstruction. No acute inflammatory changes. The appendix is not clearly visualized but there are no abnormal dilated tubular structures in the right lower quadrant to suggest acute appendicitis. Pelvic Organs: Urinary bladder shows no focal wall thickening. The uterus appears to be absent. Vasculature: There is atherosclerotic plaque in the aorta and iliac arteries without aneurysm. Bones: Multilevel degenerative spondylosis in the spine. Anterolisthesis of L4 on L5 measuring 0.7 cm. Lower lumbar spine facet hypertrophy. Other: No pathologic adenopathy. IMPRESSION: 1. No acute intra-abdominal or intrapelvic abnormality. 2. Incidental and postsurgical changes described above. RADIA
[2017-10-17] MEDS ORDERED: HYDROmorphone 2 MG/ML VIAL IVP STA (22:11)
[2017-10-17] MEDS ORDERED: oxyCODONE/ACET 5/325 Prepack 4 PO STA (22:12)
[2017-10-17 22:47] LABS: BILIRUBIN,URINE NEGATIVE (NEGATIVE); GLUCOSE, URINE (UA) NEGATIVE (NEGATIVE); KETONES,URINE (UA) NEGATIVE (NEGATIVE); LEUKOCYTE ESTERASE, URINE NEGATIVE (NEGATIVE); NITRITE,URINE NEGATIVE (NEGATIVE); OCCULT BLOOD,URINE NEGATIVE (NEGATIVE); PROTEIN,URINE NEGATIVE (NEGATIVE); UROBILINOGEN,URINE 1 (NORMAL) E.U./dL (NORMAL)
[2017-10-17 22:50] LABS: CLARITY,URINE CLEAR (CLEAR)
[2017-10-18 00:05] VITALS: BP 137/70
== END 2017-10-18 00:04 | disposition home or self-care (01) ==
LOC: ED 19:45
DX: R10.31 Right lower quadrant pain (principal); S76.011A Strain of muscle, fascia and tendon of right hip, initial encounter; Z79.82 Long term (current) use of aspirin; F17.200 Nicotine dependence, unspecified, uncomplicated
CPT/HCPCS: 74177; 80053; 81003; 83690; 85025; 96374; 96375; 99284; J1170; Q9967; 36415; 81001; 87086

== ENCOUNTER 2017-12-08 19:37 | Emergency (ER) | payer MEDICAID ==
[2017-12-08 20:10] LABS: BASOPHILS # (AUTO) 0.1 10^3/uL (0.0-0.1); BASOPHILS % (AUTO) 0.7 %; EOSINOPHILS # (AUTO) 0.1 10^3/uL (0.0-0.7); EOSINOPHILS % (AUTO) 1.4 %; HGB - HEMOGLOBIN 13.3 g/dL (12.0-16.0); LYMPHOCYTES # (AUTO) 2.6 10^3/uL (1.5-3.5); LYMPHOCYTES % (AUTO) 26.4 %; MEAN CORPUSCULAR HEMOGLOBIN 27.6 pg (27.0-31.0); MEAN CORPUSCULAR HGB CONC 33.5 g/dL (32.0-36.0); MEAN CORPUSCULAR VOLUME 82.5 fL (81.0-99.0); MEAN PLATELET VOLUME 7.7 fL (7.9-10.8); MONOCYTES # (AUTO) 1.2 10^3/uL (0.0-1.0); MONOCYTES % (AUTO) 12.1 %; NEUTROPHILS # (AUTO) 5.9 10^3/uL (1.5-6.6); NEUTROPHILS % (AUTO) 59.4 %; PLT - PLATELET COUNT 318 10^3/uL (130-450); RED BLOOD COUNT 4.82 10^6/uL (4.20-5.40); RED CELL DISTRIBUTION WIDTH 14.4 % (12.0-15.0)
[2017-12-08 20:22] LABS: ALBUMIN 3.8 g/dL (3.2-5.5); ALBUMIN/GLOBULIN RATIO 0.8 (1.0-2.2); BILIRUBIN,TOTAL 0.6 mg/dL (0.2-1.0); CALCIUM 9.3 mg/dL (8.5-10.3); CREATININE 0.7 mg/dL (0.4-1.0); TOTAL PROTEIN 8.4 g/dL (6.7-8.2)
[2017-12-08] MEDS ORDERED: SODIUM CHLORIDE 0.9% 1,000 ML IV ONE (20:39)
[2017-12-08] MEDS ORDERED: ONDANSETRON 4 MG/2 ML VIAL IVP STA (20:39)
[2017-12-08] MEDS ORDERED: HYDROmorphone 1 MG/ML CARPUJECT IVP STA (20:40)
--- NOTE | 2017-12-08 20:45 | XRAY Report ---
Procedure Date: 12/08/2017 Accession Number: [id number] / [id number] Procedure: XR - Chest 2 View X-Ray CPT Code: 23722 FULL RESULT: EXAM: CHEST RADIOGRAPHY EXAM DATE: 12/08/2017 08:21 PM. CLINICAL HISTORY: Chest pain. COMPARISON: CHEST 1 VIEW 07/11/2017. TECHNIQUE: 2 views. FINDINGS: Lungs/Pleura: No focal opacities evident. No pleural effusion. No pneumothorax. Normal volumes. Mediastinum: Heart and mediastinal contours are unremarkable. Other: None. IMPRESSION: Normal 2-view chest radiography. RADIA
[2017-12-08] MEDS ORDERED: IOPAMIDOL-300 100 ML VIAL ONE (20:48)
--- NOTE | 2017-12-08 21:37 | ED Physician Documentation ---
History of Present Illness - Stated complaint Stated Complaint: CHEST PAIN - Chief complaint Chief Complaint: Cardiac - History obtained from History obtained from: Patient - Additonal information Additional information: 57-year-old female presents the emergency department with right-sided chest pain for the past 3 days which has progressively worsened. The patient reports a sharp stabbing chest pain which radiates into her right shoulder blade. The patient denies dyspnea on exertion, URI symptoms fevers, chills, abdominal pain , vomiting or changes with food. Symptoms are described as moderate. No triggering factors. No relieving factors. No other associated symptoms Review of Systems Constitutional: denies: Fever, Chills Eyes: denies: Discharge Ears: denies: Drainage/discharge Nose: denies: Congestion Throat: denies: Sore throat Cardiac: reports: Chest pain / pressure Respiratory: denies: Dyspnea GI: denies: Abdominal Pain : denies: Dysuria, Discharge Skin: reports: Abrasion (s). denies: Laceration (s) Musculoskeletal: reports: Neck pain. denies: Extremity pain Neurologic: denies: Generalized weakness Immunocompromised: denies: Chemotherapy PD PAST MEDICAL HISTORY - Past Medical History Cardiovascular: None Respiratory: Asthma, Pneumonia Neuro: None Endocrine/Autoimmune: None GI: None OCCUPANCY SPECIALIST: None : None HEENT: None Psych: None Musculoskeletal: None Derm: None - Past Surgical History Past Surgical History: Yes General: Cholecystectomy, Appendectomy, Gastric surgery, Hiatal hernia repair /OCCUPANCY SPECIALIST: section, Hysterectomy - Present Medications Home Medications: Ambulatory Orders Medication Instructions Recorded Confirmed Albuterol Sulfate [Albuterol 2 puffs INH Q4H PRN 09/20/14 03/22/17 Sulfate Hfa] Nitroglycerin 0.4 mg SL Q5MIN PRN #14 tab.subl 02/05/17 03/22/17 - Allergies Allergies/Adverse Reactions: Allergies Allergy/AdvReac Type Severity Reaction Status Date / Time morphine Allergy Headache Verified 10/17/17 19:56 Penicillins Allergy Rash Verified 12/08/17 19:43 - Social History Does the pt smoke?: Yes Smoking Status: Current every day smoker Does the pt drink ETOH?: No Does the pt have substance abuse?: No - Immunizations Immunizations are current?: Yes - POLST Patient has POLST: No PD ED PE NORMAL - General General: Alert and oriented X 3, Well developed/nourished, Other (Patient appears to be uncomfortable) - HEENT HEENT: Atraumatic, PERRL, EOMI, Ears normal, Moist mucous membranes - Neck Neck: Supple, no meningeal sign - Cardiac Cardiac: RRR, Strong equal pulses - Respiratory Respiratory: No respiratory distress, Clear bilaterally - Abdomen Abdomen: Soft, Non tender, Non distended - Derm Derm: Normal color - Extremities Extremities: No deformity - Neuro Neuro: Alert and oriented X 3, Normal speech - Psych Psych: Normal mood Results - Vitals Vitals: Vital Signs - 24 hr 12/08/17 12/08/17 12/08/17 19:40 21:44 22:31 Temperature 36.2 C L Heart Rate 78 72 67 Respiratory 20 15 15 Rate Blood Pressure 146/73 H 146/126 H 143/103 H O2 Saturation 98 99 96 Oxygen O2 Source Room air - EKG (time done) No standard instances Rate: Rate (enter#) (64 beats a minute) Rhythm: NSR Intervals: Normal CO, QRS normal QRS: Normal Ischemia: Normal ST segments Other comments: Other comments (Sinus rhythm with no acute ischemic changes) - Labs Labs: Laboratory Tests 12/08/17 12/08/17 12/08/17 20:05 20:05 20:05 WBC 10.0 RBC 4.82 Hgb 13.3 Hct 39.7 MCV 82.5 MCH 27.6 MCHC 33.5 RDW 14.4 Plt Count 318 MPV 7.7 L Neut # (Auto) 5.9 Lymph # (Auto) 2.6 [place] # (Auto) 1.2 H Eos # (Auto) 0.1 Baso # (Auto) 0.1 Absolute Nucleated RBC 0.00 Nucleated RBC % 0.0 Sodium 139 Potassium 3.7 Chloride 102 Carbon Dioxide 27 Anion Gap 10.0 BUN 12 Creatinine 0.7 Estimated GFR (MDRD) 104 Glucose 88 Calcium 9.3 Total Bilirubin 0.6 AST 19 ALT 10 Alkaline Phosphatase 72 Troponin I < 0.04 Total Protein 8.4 H Albumin 3.8 Globulin 4.6 H Albumin/Globulin Ratio 0.8 L Lipase 28 12/08/17 22:16 WBC RBC Hgb Hct MCV MCH MCHC RDW Plt Count MPV Neut # (Auto) Lymph # (Auto) [place] # (Auto) Eos # (Auto) Baso # (Auto) Absolute Nucleated RBC Nucleated RBC % Sodium Potassium Chloride Carbon Dioxide Anion Gap BUN Creatinine Estimated GFR (MDRD) Glucose Calcium Total Bilirubin AST ALT Alkaline Phosphatase Troponin I < 0.04 Total Protein Albumin Globulin Albumin/Globulin Ratio Lipase - Rads (name of study) CTA chest Radiology: Final report received (CTA chest) Chest x-ray Radiology: Final report received (IMPRESSION: Normal 2-view chest radiography) PD MEDICAL DECISION MAKING - ED course ED course: The patient's workup does not reveal a clear etiology for the source of her symptoms, the patient recently saw beam machine operator and had an outpatient workup and it was determined she had no coronary artery disease. Today the patient's symptoms are right-sided chest pain. On reevaluation the patient resting comfortably and her symptoms appear to be under much better control. The patient's heart score places her into a low risk category. Currently, the patient appears appropriate for discharge and further workup as an outpatient. I discussed with her the findings and plan she understands and agrees. I discussed warning signs and recommended returning to the emergency department immediately for worsening or concerns. - Sepsis Event Vital Signs: Vital Signs - 24 hr 12/08/17 12/08/17 12/08/17 19:40 21:44 22:31 Temperature 36.2 C L Heart Rate 78 72 67 Respiratory 20 15 15 Rate Blood Pressure 146/73 H 146/126 H 143/103 H O2 Saturation 98 99 96 Oxygen O2 Source Room air Departure - Departure Disposition: 01 Home, Self Care Clinical Impression: Chest pain Qualifiers: Chest pain type: unspecified Qualified Code(s): R07.9 - Chest pain, unspecified Condition: Good Instructions: ED Chest Pain [facility] Follow-Up: Cheyenne Bledsoe ARNP [Primary Care Provider] - Within 3 Days Comments: Please return to the emergency department for worsening symptoms or any concerns
[2017-12-08] MEDS ORDERED: IOPAMIDOL-300 100 ML VIAL IVP ONE (21:44)
--- NOTE | 2017-12-08 22:25 | CT Report ---
Procedure Date: 12/08/2017 Accession Number: [id number] / [id number] Procedure: CT - Chest Angio (PE) CPT Code: FULL RESULT: EXAM: CT ANGIOGRAM CHEST EXAM DATE: 12/08/2017 09:46 PM. CLINICAL HISTORY: Right sided chest pain. COMPARISON: PE STUDY (CTA CHEST) 07/11/2017 CHEST W/WO 02/04/2017. TECHNIQUE: Routine helical imaging was performed through the chest in the pulmonary arterial phase. IV Contrast: ISOVUE 300 80mL. Reconstructions: Coronal 3-D MIP reconstructions.Sagittal and coronal. In accordance with CT protocol optimization, one or more of the following dose reduction techniques were utilized for this exam: automated exposure control, adjustment of mA and/or KV based on patient size, or use of iterative reconstructive technique. FINDINGS: Pulmonary Arteries: Diagnostic quality: Adequate through the segmental arteries. No evidence for acute or chronic pulmonary emboli. RV/LV is within normal limits. There is no interventricular septal bowing. There is no reflux of contrast material in the IVC. Lungs/Pleura: No consolidation, nodules, or edema. No effusions or pneumothorax. Mediastinum: Normal. No cardiac enlargement or adenopathy. Thoracic Aorta: Unremarkable. Upper Abdomen: Status post gastric bypass. There is a 4 cm low-density left adrenal gland mass compatible with a benign adenoma or cyst. Right renal cyst noted. Other: None. IMPRESSION: No pulmonary embolism or acute airspace disease. RADIA
[2017-12-08 22:32] VITALS: BP 143/103
== END 2017-12-08 23:13 | disposition home or self-care (01) ==
LOC: ED 19:37
DX: R07.9 Chest pain, unspecified (principal); F17.200 Nicotine dependence, unspecified, uncomplicated
CPT/HCPCS: 36415; 71046; 71275; 80053; 83690; 84484; 85025; 93005; 96361; 96374; 99283; J1170; Q9967

== ENCOUNTER 2018-06-30 20:26 | Emergency (ER) | payer MEDICAID ==
[2018-06-30 20:39] VITALS: BP 144/65
[2018-06-30] MEDS ORDERED: IPRATROPIUM/ALBUTEROL 3 ML NEB INH STA (20:51)
[2018-06-30] MEDS ORDERED: DOXYCYCLINE 100 MG TABLET PO STA (20:52)
[2018-06-30] MEDS ORDERED: predniSONE 20 MG TABLET PO STA (20:52)
[2018-06-30] MEDS ORDERED: HYDROcod/ACET 5/325 Prepack 4 PO STA (20:52)
[2018-06-30] MEDS ORDERED: HYDROcod/ACETAM 5/325 MG TABLET PO STA (20:52)
--- NOTE | 2018-06-30 20:55 | ED Physician Documentation ---
PD HPI URI - Stated complaint Stated Complaint: SOA - Chief complaint Chief Complaint: Resp - History obtained from History obtained from: Patient - History of Present Illness Timing - onset: Other (This is a 57-year-old woman with long-standing tobacco abuse who presents with 2 months of productive cough, shortness of breath and wheezing. It started with a simple URI but the cough is persistent. She has a lot of rib pain with coughing. She denies pedal edema or calf pain. 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 : None HEENT: None Psych: None Musculoskeletal: None Derm: None - Past Surgical History Past Surgical History: Yes General: Cholecystectomy, Appendectomy, Gastric surgery, Hiatal hernia repair /FOUNDRY MELT SUPERVISOR: section, Hysterectomy - Present Medications Home Medications: Ambulatory Orders Medication Instructions Recorded Confirmed Albuterol Sulf [Ventolin Hfa 1 - 2 puffs INH Q4HR PRN #1 inhaler 06/30/18 Inhaler] Doxycycline Hyclate 100 mg PO BID #20 capsule 06/30/18 Hydrocodone/Acetaminophen 1 - 2 each PO Q6H PRN #14 tablet 06/30/18 [Hydrocodon-Acetaminophen 5-325] Pantoprazole [Protonix] 40 mg ORAL BID 06/30/18 06/30/18 guaiFENesin/CODEINE [Robitussin AC] 5 - 10 ml PO Q6H PRN #120 ml 06/30/18 predniSONE [Deltasone] 20 mg PO [id number] #21 tab 06/30/18 - Allergies Allergies/Adverse Reactions: Allergies Allergy/AdvReac Type Severity Reaction Status Date / Time morphine Allergy Headache Verified 06/30/18 20:39 Penicillins Allergy Rash Verified 06/30/18 20:39 - Social History Does the pt smoke?: Yes Smoking Status: Current every day smoker Does the pt drink ETOH?: No Does the pt have substance abuse?: No - Immunizations Immunizations are current?: Yes - POLST Patient has POLST: No PD ED PE NORMAL - Vitals Vital signs reviewed: Yes - General General: Alert and oriented X 3, Other (Frequent bronchitic cough) - HEENT HEENT: Ears normal, Pharynx benign - Cardiac Cardiac: RRR, No murmur - Respiratory Respiratory: Other (Diffuse wheezing and rhonchi without focal findings) - Extremities Extremities: No edema, No calf tenderness / cord - Neuro Neuro: Alert and oriented X 3, Normal speech Results - Vitals Vitals: Vital Signs - 24 hr 06/30/18 20:35 Temperature 37.1 C Heart Rate 76 Respiratory 32 H Rate Blood Pressure 144/65 H O2 Saturation 97 Oxygen O2 Source Room air PD MEDICAL DECISION MAKING - ED course ED course: This is a 57-year-old woman with what sounds like bronchitis, long-standing tobacco abuse and probably has some element of underlying COPD and will treat as a flare. Departure - Departure Disposition: 01 Home, Self Care Clinical Impression: Bronchitis Condition: Good Record reviewed to determine appropriate education?: Yes Instructions: Bronchitis Chronic Prescriptions: Albuterol Sulf [Ventolin Hfa Inhaler] 1 - 2 puffs INH Q4HR PRN #1 inhaler PRN Reason: Shortness Of Air/Wheezing Doxycycline Hyclate 100 mg PO BID #20 capsule guaiFENesin/CODEINE [Robitussin AC] 5 - 10 ml PO Q6H PRN #120 ml PRN Reason: Cough Hydrocodone/Acetaminophen [Hydrocodon-Acetaminophen 5-325] 1 - 2 each PO Q6H PRN #14 tablet PRN Reason: pain predniSONE [Deltasone] 20 mg PO [id number] #21 tab Comments: Call your doctor to arrange a follow-up appointment, make the next available appointment. In the interim, return anytime if worse or if new symptoms develop. Your blood pressure was elevated today on check into the emergency department. This does not mean that you have hypertension, it is a common phenomenon to come to the emergency department and have elevated blood pressure. I recommend that you see your primary care physician within the week to have it rechecked when you are feeling better.
== END 2018-06-30 21:26 | disposition home or self-care (01) ==
LOC: ED 20:26
DX: J40 Bronchitis, not specified as acute or chronic (principal); R03.0 Elevated blood-pressure reading, without diagnosis of hypertension; F17.200 Nicotine dependence, unspecified, uncomplicated
CPT/HCPCS: 94640; 99283; A9270; J7512

== ENCOUNTER 2018-08-29 01:04 | Outpatient (CLI) | payer MEDICAID | END 2018-08-29 01:05 | disposition EMS.NT | LOC: EMS 01:04 | PROVIDERS: ATTEND Surgery | DX: R25.2 Cramp and spasm (principal) ==

== ENCOUNTER 2018-10-08 21:45 | Emergency (ER) | payer MEDICAID ==
--- NOTE | 2018-10-08 22:17 | ED Physician Documentation ---
History of Present Illness - Stated complaint Stated Complaint: BODY ACHES - Chief complaint Chief Complaint: General - History obtained from History obtained from: Patient - History of Present Illness Timing: Today Quality: Intermittent "seizing" - Additonal information Additional information: This is a 58-year-old woman who presents with complaints that today anytime she tries to reach for something her muscles just "seize up". Is very painful if she tries to move her neck it so stiff and painful radiating pain down into her shoulders and is intolerable. She has a history of body cramps but never anything this been this severe. She is been seen and treated in the emergency department for it before. She did not take any medications today for the pain. She has been short of breath but has a history of asthma and is a smoker. She last used her inhaler at 5 PM and she is coughing up some light yellow foamy phlegm for the past several months. Her lower extremities are more swollen than normal and have read itchy lesions on them that she initially thought were bug bites when she first noticed it on the back of her right leg today but now they are spreading. She is also concerned because a month ago she stepped on something with her left foot and it still in there. She was barefoot in her daughter's home and stepped on something on the floor. She states she tried to remove it then without success (it was too deep). She never wears shoes, so her feet are tough and she thought it might work it's way out, but it hasn't. She is uncertain when her last tetanus vaccine was, but it was more than 10 years ago. Review of Systems Constitutional: denies: Fever Cardiac: denies: Chest pain / pressure, Palpitations Respiratory: reports: Dyspnea, Cough. denies: Hemoptysis GI: denies: Nausea, Vomiting : denies: Dysuria Skin: reports: Rash Musculoskeletal: reports: Neck pain, Other (Muscle spasms) Neurologic: denies: Headache PD PAST MEDICAL HISTORY - Past Medical History Cardiovascular: None Respiratory: Asthma, Pneumonia Neuro: None Endocrine/Autoimmune: None GI: None REBRANDER: None : None HEENT: None Psych: None Musculoskeletal: None Derm: None - Past Surgical History Past Surgical History: Yes General: Cholecystectomy, Appendectomy, Gastric surgery, Hiatal hernia repair /REBRANDER: section, Hysterectomy - Present Medications Home Medications: Ambulatory Orders Medication Instructions Recorded Confirmed Albuterol Sulf [Ventolin Hfa 1 - 2 puffs INH Q4HR PRN #1 inhaler 06/30/18 Inhaler] Pantoprazole [Protonix] 40 mg ORAL BID 06/30/18 06/30/18 Omeprazole 20 mg PO DAILY 10/08/18 10/08/18 - Allergies Allergies/Adverse Reactions: Allergies Allergy/AdvReac Type Severity Reaction Status Date / Time morphine Allergy Headache Verified 10/08/18 21:59 Penicillins Allergy Rash Verified 10/08/18 21:59 - Social History Does the pt smoke?: Yes Smoking Status: Current every day smoker Does the pt drink ETOH?: No Does the pt have substance abuse?: No - Immunizations Immunizations are current?: Yes - POLST Patient has POLST: No Results - Vitals Vitals: Vital Signs - 24 hr 10/08/18 10/08/18 10/09/18 21:52 23:35 00:11 Temperature 37.3 C Heart Rate 87 73 77 Respiratory 18 18 20 Rate Blood Pressure 162/78 H 115/87 H 110/64 O2 Saturation 98 96 95 10/09/18 10/09/18 01:00 02:06 Temperature Heart Rate 67 76 Respiratory 18 17 Rate Blood Pressure 112/69 120/69 O2 Saturation 94 96 Oxygen O2 Source Room air - EKG (time done) 2246 Rate: Rate (enter#) Rhythm: NSR Intervals: Normal NV Ischemia: Normal ST segments Compare to prior EKG: Old EKG unavailable - Labs Labs: Laboratory Tests 10/08/18 10/08/18 10/08/18 22:31 22:31 22:31 WBC 11.1 H RBC 4.81 Hgb 13.0 Hct 39.6 MCV 82.3 MCH 27.0 MCHC 32.8 RDW 14.7 Plt Count 267 MPV 8.4 Neut # (Auto) 7.8 H Lymph # (Auto) 1.8 [place] # (Auto) 1.3 H Eos # (Auto) 0.1 Baso # (Auto) 0.1 Absolute Nucleated RBC 0.00 Nucleated RBC % 0.0 Sodium 137 Potassium 3.9 Chloride 101 Carbon Dioxide 23 Anion Gap 13.0 BUN 15 Creatinine 0.7 Estimated GFR (MDRD) 103 Glucose 101 H Calcium 9.3 Phosphorus Magnesium 2.1 Total Bilirubin 0.7 AST 23 ALT 14 Alkaline Phosphatase 88 Troponin I < 0.04 B-Natriuretic Peptide Total Protein 8.4 H Albumin 4.3 Globulin 4.1 Albumin/Globulin Ratio 1.0 Lipase 32 10/08/18 10/08/18 22:31 22:31 WBC RBC Hgb Hct MCV MCH MCHC RDW Plt Count MPV Neut # (Auto) Lymph # (Auto) [place] # (Auto) Eos # (Auto) Baso # (Auto) Absolute Nucleated RBC Nucleated RBC % Sodium Potassium Chloride Carbon Dioxide Anion Gap BUN Creatinine Estimated GFR (MDRD) Glucose Calcium Phosphorus 4.0 Magnesium Total Bilirubin AST ALT Alkaline Phosphatase Troponin I B-Natriuretic Peptide 32 Total Protein Albumin Globulin Albumin/Globulin Ratio Lipase - Rads (name of study) CXR Radiology: EMP read contemporaneously (Cardiomegaly; No infiltrate) L foot Radiology: EMP read contemporaneously (No radio-opaque foreign body) PD MEDICAL DECISION MAKING - ED course Complexity details: re-evaluated patient, d/w business information consultant ED course: 1256: White blood cell count was very minimally elevated at 11.1. Her chemistries appear normal and troponin is normal. BNP is negative. Chest x-ray has some cardiomegaly but no infiltrate. I do not see a radiopaque foreign body in her left foot imaging. I did give her Dilaudid and Phenergan IM because the nurses were having difficulty getting IV access. IV access was then established and she was given Valium 5 mg IV. She stated that she was feeling better following the Valium. Tetanus immune globulin and tetanus vaccine were administered. I spoke to the infectious disease specialist at [facility] Dr. Kayla Mazariegos who recommended that the patient be admit here for observation and she would be available for further consultation if needed. 0220: I did speak with our hospitalist and they are understandably uncomfortable with keeping this patient here with the potential for significant deterioration. Spoke with Dr Grant at [facility] and he has agreed to accept the patient in transfer. I went in to speak with the patient and she was having muscle spasm like torticollis in her neck. Will remedicate with Valium. 0312: Patient continues to c/o pain. Toradol 30mg IV ordered. Transport will be delayed due to EMS availability. Departure - Departure Disposition: 02 Transfer Acute Care Hosp Clinical Impression: [place] Edema Qualifiers: Edema type: unspecified Qualified Code(s): R60.9 - Edema, unspecified Condition: Good
[2018-10-08 22:36] LABS: BASOPHILS # (AUTO) 0.1 10^3/uL (0.0-0.1); BASOPHILS % (AUTO) 1.3 %; EOSINOPHILS # (AUTO) 0.1 10^3/uL (0.0-0.7); EOSINOPHILS % (AUTO) 0.8 %; LYMPHOCYTES # (AUTO) 1.8 10^3/uL (1.5-3.5); LYMPHOCYTES % (AUTO) 16.5 %; MEAN CORPUSCULAR HGB CONC 32.8 g/dL (32.0-36.0); MEAN CORPUSCULAR VOLUME 82.3 fL (81.0-99.0); MEAN PLATELET VOLUME 8.4 fL (7.9-10.8); MONOCYTES # (AUTO) 1.3 10^3/uL (0.0-1.0); MONOCYTES % (AUTO) 11.3 %; NEUTROPHILS # (AUTO) 7.8 10^3/uL (1.5-6.6); NEUTROPHILS % (AUTO) 70.1 %; PLT - PLATELET COUNT 267 10^3/uL (130-450); RED BLOOD COUNT 4.81 10^6/uL (4.20-5.40); RED CELL DISTRIBUTION WIDTH 14.7 % (12.0-15.0); WHITE BLOOD COUNT 11.1 x10^3/uL (4.8-10.8)
[2018-10-08] MEDS ORDERED: diazePAM INJ 5 MG/ML SYRINGE IVP STA (22:40)
[2018-10-08 22:49] LABS: ALBUMIN 4.3 g/dL (3.2-5.5); BILIRUBIN,TOTAL 0.7 mg/dL (0.2-1.0); CALCIUM 9.3 mg/dL (8.5-10.3); CREATININE 0.7 mg/dL (0.4-1.0); MAGNESIUM 2.1 mg/dL (1.7-2.8); TOTAL PROTEIN 8.4 g/dL (6.7-8.2)
[2018-10-08] MEDS ORDERED: TETANUS IMMUNE GLOBULIN 250 UNIT SYRINGE IM STA (23:07)
[2018-10-08] MEDS ORDERED: TETANUS/DIPHTHERIA/PERTUSSIS 0.5 ML SYRINGE IM ONE (23:08)
[2018-10-08] MEDS ORDERED: HYDROmorphone 1 MG/ML CARPUJECT IM STA (23:09)
[2018-10-08] MEDS ORDERED: PROMETHAZINE 25 MG/1 ML VIAL IM STA (23:10)
--- NOTE | 2018-10-08 23:30 | XRAY Report ---
Reason: puncture 1 mo ago; r/o FB Procedure Date: 10/08/2018 Accession Number: [id number] / [id number] Procedure: XR - Foot 3 View LT CPT Code: FULL RESULT: EXAM: LEFT FOOT RADIOGRAPHY EXAM DATE: 10/08/2018 10:40 PM. CLINICAL HISTORY: Puncture wound. Suspected foreign body. Worsening pain and swelling. COMPARISON: FOOT 3 VIEW LT 03/22/2017 11:59 AM. TECHNIQUE: 3 views. FINDINGS: Bones: Osteopenia. Mild bunion deformity. Plantar calcaneal osteophyte. No acute fracture seen. No focal area of bone destruction. Joints: Degenerative changes. Hallux valgus. Soft Tissues: Soft tissue swelling. No radiopaque foreign body identified. IMPRESSION: 1. Osteopenia and degenerative changes with bunion deformity and hallux valgus. 2. Soft tissue swelling. No radiopaque foreign body seen. RADIA
--- NOTE | 2018-10-08 23:32 | XRAY Report ---
Reason: chest pain Procedure Date: 10/08/2018 Accession Number: [id number] / [id number] Procedure: XR - Chest 1 View X-Ray CPT Code: 62144 FULL RESULT: EXAM: CHEST RADIOGRAPHY EXAM DATE: 10/08/2018 10:40 PM. CLINICAL HISTORY: Chest pain and shortness of breath. Productive cough. COMPARISON: CHEST 2 VIEW 12/08/2017 8:12 PM. TECHNIQUE: 1 view. FINDINGS: Lungs/Pleura: No alveolar consolidation or pleural effusion seen. No pneumothorax. Mediastinum: Within exam limitations, heart size is upper normal. Other: Osteopenia. IMPRESSION: 1. Borderline heart size. No acute abnormality seen. RADIA
[2018-10-09] MEDS ORDERED: diazePAM INJ 5 MG/ML SYRINGE IVP STA (01:55)
[2018-10-09] MEDS ORDERED: KETOROLAC 30 MG/ML VIAL IVP STA (03:12)
[2018-10-09 03:55] LABS: BILIRUBIN,URINE NEGATIVE (NEGATIVE); GLUCOSE, URINE (UA) NEGATIVE (NEGATIVE); KETONES,URINE (UA) NEGATIVE (NEGATIVE); LEUKOCYTE ESTERASE, URINE NEGATIVE (NEGATIVE); NITRITE,URINE NEGATIVE (NEGATIVE); OCCULT BLOOD,URINE NEGATIVE (NEGATIVE); PROTEIN,URINE NEGATIVE (NEGATIVE); UROBILINOGEN,URINE 0.2 (NORMAL) E.U./dL (NORMAL)
[2018-10-09 05:06] VITALS: BP 110/59
[2018-10-09 05:07] LABS: CLARITY,URINE CLEAR (CLEAR)
== END 2018-10-09 05:31 | disposition short-term general hospital (02) ==
LOC: ED 21:45
DX: R29.0 Tetany (principal); R60.0 Localized edema; J45.909 Unspecified asthma, uncomplicated; F17.200 Nicotine dependence, unspecified, uncomplicated; I51.7 Cardiomegaly; Z23 Encounter for immunization; M19.072 Primary osteoarthritis, left ankle and foot; M20.12 Hallux valgus (acquired), left foot; M21.612 Bunion of left foot; M25.775 Osteophyte, left foot; M85.872 Other specified disorders of bone density and structure, left ankle and foot
CPT/HCPCS: 36415; 71045; 73630; 80053; 81003; 83690; 83735; 83880; 84100; 84484; 85025; 87040; 90471; 90715; 93005; 96372; 96374; 96375; 96376; 99284; J1170; 81001; 87086; 99285

== ENCOUNTER 2019-01-19 21:33 | Outpatient (CLI) | payer MEDICAID | END 2019-01-19 21:34 | disposition critical access hospital (66) | LOC: EMS 21:33 | PROVIDERS: ATTEND Surgery | DX: M79.605 Pain in left leg (principal); M79.89 Other specified soft tissue disorders | CPT/HCPCS: A0425; A0429; A0999; 36415 ==

== ENCOUNTER 2019-01-19 21:52 | Emergency (ER) | payer MEDICAID ==
[2019-01-19] MEDS ORDERED: KETOROLAC 30 MG/ML VIAL IVP STA (23:37)
--- NOTE | 2019-01-19 23:49 | ED Physician Documentation ---
History of Present Illness - Stated complaint Stated Complaint: LLE SWELLING/PX - Chief complaint Chief Complaint: Ext Problem - History obtained from History obtained from: Patient - History of Present Illness Timing: Yesterday Pain level now: 10 - Additonal information Additional information: This is a 58-year-old woman who presents with complaints that she is having pain from about her mid thigh all the way down the left leg to her toes that started yesterday. She reports a history of "flareups" of the same pain in both lower extremities where her feet will swell and ache on about a yearly basis. She is been told that she may have neuropathy. She is never been diagnosed with arthritis or gout. She is been elevating it today and taking Tylenol but it does nothing. She did not have any ibuprofen at home to take. She is felt hot but did not check her temperature. The swelling in the left leg started around 5 AM and now the right foot is also starting to hurt. She is had no nausea or vomiting. Denies history of diabetes. Denies DVT. 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 : None HEENT: None Psych: None Musculoskeletal: None Derm: None - Past Surgical History Past Surgical History: Yes General: Cholecystectomy, Appendectomy, Gastric surgery, Hiatal hernia repair /CABLE WORKER HELPER: section, Hysterectomy - Present Medications Home Medications: Ambulatory Orders Medication Instructions Recorded Confirmed Pantoprazole [Protonix] 40 mg ORAL BID 06/30/18 06/30/18 RX: Albuterol Sulf [Ventolin Hfa 1 - 2 puffs INH Q4HR PRN #1 inhaler 06/30/18 Inhaler] RX: Omeprazole 20 mg PO DAILY 10/08/18 10/08/18 Hydrocodone/Acetaminophen 1 each PO Q6H #10 tablet 01/20/19 [Hydrocodone-Acetamin 5-325 mg] - Allergies Allergies/Adverse Reactions: Allergies Allergy/AdvReac Type Severity Reaction Status Date / Time morphine Allergy Headache Verified 09/24/19 21:59 Penicillins Allergy Rash Verified 01/19/19 21:59 - Social History Does the pt smoke?: Yes Smoking Status: Current every day smoker Does the pt drink ETOH?: No Does the pt have substance abuse?: No - Immunizations Immunizations are current?: Yes - POLST Patient has POLST: No PD ED PE NORMAL - Vitals Vital signs reviewed: Yes - General General: Alert and oriented X 3, No acute distress, Well developed/nourished - HEENT HEENT: Atraumatic - Cardiac Cardiac: RRR - Respiratory Respiratory: No respiratory distress - Derm Derm: Other (There is erythema along the lateral aspect of the left ankle and foot. It feels warm.) - Extremities Extremities: Other (There is edema to both lower extremities slightly worse in the left foot than it is on the right. There are 2+ dorsalis pedis pulses bilaterally. She is able to wiggle her toes. Any movement of the leg elicits exquisite pain. She complains of pain with palpation in the popliteal fossa around the knee through the calf and into the ankle and foot.) - Neuro Neuro: Alert and oriented X 3, financial aid advisor 2-12 intact, No motor deficit, No sensory deficit, Normal speech Results - Vitals Vitals: Vital Signs - 24 hr 01/19/19 01/20/19 01/20/19 21:57 00:42 03:30 Temperature 37.6 C H 37.0 C 37.0 C Heart Rate 81 60 Respiratory 18 17 Rate Blood Pressure 148/75 H 115/68 O2 Saturation 99 97 Oxygen O2 Source Room air - Labs Labs: Laboratory Tests 01/19/19 01/19/19 01/19/19 23:59 23:59 23:59 WBC 12.8 H RBC 4.39 Hgb 11.5 L Hct 36.3 L MCV 82.7 MCH 26.2 L MCHC 31.7 L RDW 14.7 Plt Count 288 MPV 10.6 Neut # (Auto) 8.8 H Lymph # (Auto) 2.3 [place] # (Auto) 1.5 H Eos # (Auto) 0.1 Baso # (Auto) 0.1 Absolute Nucleated RBC 0.00 Band Neuts % (Manual) Not Reportable Abnorm Lymph % (Manual) Not Reportable Nucleated RBC % 0.0 Neutrophils # (Manual) Not Reportable Lymphocytes # (Manual) Not Reportable Monocytes # (Manual) Not Reportable Eosinophils # (Manual) Not Reportable Basophils # (Manual) Not Reportable Differential Comment MANUAL=AUTO DIFF Platelet Estimate NORMAL (130-450,000) RBC Morph Micro Appear NORMAL APPEARANCE ESR 67 H Sodium 139 Potassium 3.7 Chloride 103 Carbon Dioxide 26 Anion Gap 10.0 BUN 15 Creatinine 0.7 Estimated GFR (MDRD) 103 Glucose 117 H Uric Acid 4.4 Calcium 9.2 - Rads (name of study) L ankle Radiology: EMP read contemporaneously (Degen changes at tarsal-metatarsal junctions), See rad report PD MEDICAL DECISION MAKING - ED course Complexity details: reviewed results, d/w patient ED course: This patient has not had this recurrent flareup in her ankle on both sides in the past. The imaging shows some degenerative changes in the tarsometatarsal joints. Her uric acid level is normal but she does have an elevated white blood cell count at 12.8 and elevated sed rate. Still suspicious that she could have gout given the recurrent nature of this. She cannot tolerate anti-inflammatory medications because of peptic ulcer disease. She did get a Toradol injection here which helped a lot but the pain started to creep back up so I did give her 1 mg of Dilaudid and she is discharged with a prescription for 10 hydrocodone 5 mg tablets. I do not see evidence that this is a septic joint. I referred her to her primary care provider for further pain management and she is intending to follow-up with neurologist regarding the possibility of a neuropathy. Departure - Departure Disposition: 01 Home, Self Care Clinical Impression: Leg pain, left Condition: Good Instructions: ED Degenerative Joint Disease Follow-Up: Your,Doctor [Other] Prescriptions: Hydrocodone/Acetaminophen [Hydrocodone-Acetamin 5-325 mg] 1 each PO Q6H #10 tablet Comments: Stay off your foot as much as possible. You can elevate it and ice it. You have a few hydrocodone tablets to take if you need for severe pain but you need to follow-up with your primary care provider for any further pain management. Return if you have fever, spreading redness, increasing pain not controlled with your medications. Discharge Date/Time: 01/20/19 03:53
[2019-01-20 00:16] LABS: BASOPHILS # (AUTO) 0.1 10^3/uL (0.0-0.1); BASOPHILS % (AUTO) 0.5 %; EOSINOPHILS # (AUTO) 0.1 10^3/uL (0.0-0.7); EOSINOPHILS % (AUTO) 0.6 %; HGB - HEMOGLOBIN 11.5 g/dL (12.0-16.0); LYMPHOCYTES # (AUTO) 2.3 10^3/uL (1.5-3.5); LYMPHOCYTES % (AUTO) 17.9 %; MEAN CORPUSCULAR HEMOGLOBIN 26.2 pg (27.0-31.0); MEAN CORPUSCULAR HGB CONC 31.7 g/dL (32.0-36.0); MEAN CORPUSCULAR VOLUME 82.7 fL (81.0-99.0); MEAN PLATELET VOLUME 10.6 fL (7.9-10.8); MONOCYTES # (AUTO) 1.5 10^3/uL (0.0-1.0); MONOCYTES % (AUTO) 11.9 %; NEUTROPHILS # (AUTO) 8.8 10^3/uL (1.5-6.6); NEUTROPHILS % (AUTO) 68.6 %; PLT - PLATELET COUNT 288 10^3/uL (130-450); RED BLOOD COUNT 4.39 10^6/uL (4.20-5.40); RED CELL DISTRIBUTION WIDTH 14.7 % (12.0-15.0); WHITE BLOOD COUNT 12.8 x10^3/uL (4.8-10.8)
[2019-01-20 00:27] LABS: CALCIUM 9.2 mg/dL (8.5-10.3); CREATININE 0.7 mg/dL (0.4-1.0); URIC ACID 4.4 mg/dL (2.6-7.2)
[2019-01-20 00:41] LABS: DIFFERENTIAL COMMENT MANUAL=AUTO DIFF; PLATELET ESTIMATE, MANUAL NORMAL (130-450,000) (NORMAL); RBC MORPHOLOGY (MULTIPLE) NORMAL APPEARANCE (NORMAL)
--- NOTE | 2019-01-20 01:57 | XRAY Report ---
Reason: pain ankle Procedure Date: 01/20/2019 Accession Number: [id number] / [id number] Procedure: XR - Ankle 3 View LT CPT Code: FULL RESULT: EXAM: LEFT ANKLE RADIOGRAPHY EXAM DATE: 01/20/2019 01:27 AM. CLINICAL HISTORY: Pain ankle. COMPARISON: ANKLE 3 VIEW LT 03/22/2017 11:59 AM. TECHNIQUE: 3 views. FINDINGS: Bones: No acute fractures or bone lesions. Stable posterior calcaneal spurring. Joints: No significant effusion. No subluxation or dislocation. The ankle mortise is normally aligned. Degenerative change at tarsometatarsal joints. Small degenerative osteophytes at tibiotalar joint. Soft Tissues: Diffuse soft tissue swelling/edema of the visualized lower leg, ankle and foot. Soft tissue calcifications. IMPRESSION: 1. No acute fracture or dislocation. 2. Degenerative changes as above. 3. Diffuse soft tissue swelling/edema. Correlate clinically. RADIA
[2019-01-20] MEDS ORDERED: HYDROmorphone 1 MG/ML CARPUJECT IVP STA (02:52)
[2019-01-20] MEDS ORDERED: ONDANSETRON 4 MG/2 ML VIAL IVP STA (02:52)
[2019-01-20] MEDS ORDERED: ONDANSETRON ODT 4 MG TABLET TL STA (03:26)
[2019-01-20 03:31] VITALS: BP 115/68
--- NOTE | 2019-01-20 15:34 | Ultrasound Report ---
Reason: LLE SWELLING Procedure Date: 01/19/2019 Accession Number: [id number] / [id number] Procedure: US - Duplex Ext Veins Left CPT Code: FULL RESULT: EXAM: LEFT LOWER EXTREMITY VENOUS ULTRASOUND EXAM DATE: 01/19/2019 10:41 PM. CLINICAL HISTORY: Left leg swelling COMPARISON: None. TECHNIQUE: Real-time sonographic vascular imaging was performed by the spray maker through the lower extremity utilizing both color-flow and Doppler spectral analysis. Multiple agency service representative static images were saved for review. FINDINGS: Common Femoral Vein (CFV): Normal. CFV-GSV Junction: Normal. Profunda Femoral Vein (PFV): Normal. Femoral Vein (FV) Prox: Normal. Femoral Vein (FV) Mid: Normal. Femoral Vein (FV) Dist: Normal. Popliteal Vein: Normal. Posterior Tibial Veins: Normal. Peroneal Veins: Normal. Contralateral Side CFV: Normal. Other: Reactive groin lymph node. IMPRESSION: No evidence for left leg deep venous thrombosis. RADIA
== END 2019-01-20 03:53 | disposition home or self-care (01) ==
LOC: EDUNIT# → ED 21:52
DX: M19.072 Primary osteoarthritis, left ankle and foot (principal); M25.562 Pain in left knee; M79.662 Pain in left lower leg; R60.0 Localized edema; Z87.11 Personal history of peptic ulcer disease; F17.200 Nicotine dependence, unspecified, uncomplicated
CPT/HCPCS: 36415; 73610; 80048; 84550; 85025; 85651; 93971; 96374; 96375; 99284; J1170; Q0162

== ENCOUNTER 2019-04-23 14:31 | Emergency (ER) | payer MEDICAID ==
[2019-04-23] MEDS ORDERED: KETOROLAC 60 MG/2 ML VIAL IM STA (18:07)
[2019-04-23] MEDS ORDERED: diazePAM INJ 5 MG/ML SYRINGE IM STA (18:07)
--- NOTE | 2019-04-23 18:35 | ED Physician Documentation ---
History of Present Illness - Stated complaint Stated Complaint: L SIDE IMMOBILE - Chief complaint Chief Complaint: General - History obtained from History obtained from: Patient - History of Present Illness Timing: Chronic Pain level max: 9 Pain level now: 9 - Additonal information Additional information: 58-year-old female presents to the emergency department complaining of left- sided muscle cramping. She states that she was diagnosed with dystonia approximately 6 months ago, is scheduled to see neurology on Friday. Took her Robaxin at home without relief. No fevers. No recent illness. Nothing makes it better. Worse with movement. 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 : None HEENT: None Psych: None Musculoskeletal: None Derm: None - Past Surgical History Past Surgical History: Yes General: Cholecystectomy, Appendectomy, Gastric surgery, Hiatal hernia repair /EIGHT ARM OPERATOR: section, Hysterectomy - Present Medications Home Medications: Ambulatory Orders Medication Instructions Recorded Confirmed Albuterol Sulf [Ventolin Hfa 1 - 2 puffs INH Q4HR PRN #1 inhaler 06/30/18 Inhaler] Pantoprazole [Protonix] 40 mg ORAL BID 06/30/18 06/30/18 Omeprazole 20 mg PO DAILY 10/08/18 10/08/18 Hydrocodone/Acetaminophen 1 each PO Q6H #10 tablet 01/20/19 [Hydrocodone-Acetamin 5-325 mg] Meloxicam [Mobic] 15 mg PO DAILY PRN #20 tablet 04/23/19 diazePAM [Valium] 5 - 10 mg PO TID PRN #15 tablet 04/23/19 - Allergies Allergies/Adverse Reactions: Allergies Allergy/AdvReac Type Severity Reaction Status Date / Time morphine Allergy Headache Verified 01/19/19 21:59 Penicillins Allergy Rash Verified 01/19/19 21:59 - Social History Does the pt smoke?: Yes Smoking Status: Current every day smoker Does the pt drink ETOH?: No Does the pt have substance abuse?: No - Immunizations Immunizations are current?: Yes - POLST Patient has POLST: No PD ED PE NORMAL - Vitals Vital signs reviewed: Yes - General General: Alert and oriented X 3, No acute distress, Well developed/nourished - HEENT HEENT: Moist mucous membranes - Neck Neck: Supple, no meningeal sign - Cardiac Cardiac: RRR, Strong equal pulses - Respiratory Respiratory: No respiratory distress, Clear bilaterally - Abdomen Abdomen: Soft, Non tender, Non distended - Derm Derm: Warm and dry, No rash - Extremities Extremities: Other (Spasm in the left arm and left leg. Difficulty with movement secondary to pain. Neurovascular intact) - Neuro Neuro: Alert and oriented X 3, bomb squad officer 2-12 intact, No motor deficit, No sensory deficit, Normal speech - Psych Psych: Normal mood, Normal affect Results - Vitals Vitals: Vital Signs - 24 hr 04/23/19 04/23/19 04/23/19 14:37 18:15 20:47 Temperature 37.0 C 37.8 C H 37.5 C Heart Rate 86 71 70 Respiratory 18 22 20 Rate Blood Pressure 167/83 H 141/83 H 111/62 O2 Saturation 99 97 95 Oxygen O2 Source Room air PD MEDICAL DECISION MAKING - ED course Complexity details: reviewed old records, re-evaluated patient, considered di fferential, d/w patient ED course: Patient feels better after Valium, Toradol and Flexeril. Moving better. Will prescribe muscle relaxants for home. She is well-appearing, nontoxic. Afebrile. Patient counseled regarding signs and symptoms for which I believe and urgent re-evaluation would be necessary. Patient with good understanding of and agreement to plan and is comfortable going home at this time This document was made in part using voice recognition software. While efforts are made to proofread this document, sound alike and grammatical errors may occur. This appears consistent with her prior episodes of dystonia. She sees neurology next week Departure - Departure Disposition: 01 Home, Self Care Clinical Impression: Dystonia Condition: Good Instructions: ED Spasm Muscle Follow-Up: Cheyenne Bledsoe ARNP [Primary Care Provider] - Prescriptions: diazePAM [Valium] 5 - 10 mg PO TID PRN #15 tablet PRN Reason: Spasms Meloxicam [Mobic] 15 mg PO DAILY PRN #20 tablet PRN Reason: pain Comments: Follow-up with your doctor for further care. Return if you worsen. This should continue to improve over the night as the medications work. Discharge Date/Time: 04/23/19 20:50
[2019-04-23] MEDS ORDERED: CYCLOBENZAPRINE 10 MG TABLET PO STA (20:19)
[2019-04-23 20:47] VITALS: BP 111/62
== END 2019-04-23 20:50 | disposition home or self-care (01) ==
LOC: ED 14:31
DX: G24.9 Dystonia, unspecified (principal); F17.200 Nicotine dependence, unspecified, uncomplicated
CPT/HCPCS: 96372; 99283; 99284; A9270

== ENCOUNTER 2019-04-29 10:56 | Emergency (ER) | payer MEDICAID ==
[2019-04-29 11:27] LABS: RAPID STREP SCREEN Negative (Negative)
[2019-04-29] MEDS ORDERED: LIDOCAINE VISCOUS 2% 15 ML UDC MM STA (12:35)
[2019-04-29] MEDS ORDERED: MAG HYDROX/AL HYDROX/SIMETH 30 ML UDC PO STA (12:35)
--- NOTE | 2019-04-29 12:37 | ED Physician Documentation ---
History of Present Illness - Stated complaint Stated Complaint: THROAT OBSTRUCTION - Chief complaint Chief Complaint: Heent - History obtained from History obtained from: Patient (Since last night she feels like she is got a lump of mucus stuck on the left side of her throat that is quite painful and is worried that it might break off and she might bleed to . She not short of breath. 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 : None HEENT: None Psych: None Musculoskeletal: None Derm: None - Past Surgical History Past Surgical History: Yes General: Cholecystectomy, Appendectomy, Gastric surgery, Hiatal hernia repair /OXYACETYLENE WELDER: section, Hysterectomy - Present Medications Home Medications: Ambulatory Orders Medication Instructions Recorded Confirmed Albuterol Sulf [Ventolin Hfa 1 - 2 puffs INH Q4HR PRN #1 inhaler 06/30/18 Inhaler] Pantoprazole [Protonix] 40 mg ORAL BID 06/30/18 06/30/18 Omeprazole 20 mg PO DAILY 10/08/18 10/08/18 Hydrocodone/Acetaminophen 1 each PO Q6H #10 tablet 01/20/19 [Hydrocodone-Acetamin 5-325 mg] Meloxicam [Mobic] 15 mg PO DAILY PRN #20 tablet 04/23/19 diazePAM [Valium] 5 - 10 mg PO TID PRN #15 tablet 04/23/19 Hydrocodone/Acetaminophen 1 - 2 each PO Q6H PRN #7 tablet 04/29/19 [Hydrocodon-Acetaminophen 5-325] predniSONE [Deltasone] 60 mg PO DAILY 5 Days #15 tablet 04/29/19 - Allergies Allergies/Adverse Reactions: Allergies Allergy/AdvReac Type Severity Reaction Status Date / Time morphine Allergy Headache Verified 01/19/19 21:59 Penicillins Allergy Rash Verified 01/19/19 21:59 - Social History Does the pt smoke?: Yes Smoking Status: Current every day smoker Does the pt drink ETOH?: No Does the pt have substance abuse?: No - Immunizations Immunizations are current?: Yes - POLST Patient has POLST: No PD ED PE NORMAL - Vitals Vital signs reviewed: Yes - General General: Alert and oriented X 3, No acute distress - HEENT HEENT: Other (The uvula is erythematous and slightly swollen as is the mucosa on the left side of the pharynx inferior to the tonsils. The tonsils themselves look fairly normal. I am able to see all the way down to the epiglottis on visual examination without mass lesion.) - Neck Neck: Supple, no meningeal sign, No bony TTP, No adenopathy - Neuro Neuro: Alert and oriented X 3, Normal speech Results - Vitals Vitals: Vital Signs - 24 hr 04/29/19 11:01 Temperature 37.3 C Heart Rate 72 Respiratory 18 Rate Blood Pressure 169/87 H O2 Saturation 100 Oxygen O2 Source Room air - Labs Labs: Laboratory Tests 04/29/19 11:06 Group A Strep Rapid Negative PD MEDICAL DECISION MAKING - ED course ED course: 58-year-old woman presents with viral pharyngitis with swelling causing pain. Alternative diagnoses are considered but very unlikely. She is given a GI cocktail and some steroids and pain medication and a referral to ENT if not better. Departure - Departure Disposition: Home, Self Care Clinical Impression: Viral pharyngitis Condition: Good Record reviewed to determine appropriate education?: Yes Instructions: ED Pharyngitis Viral Report Pending Prescriptions: Hydrocodone/Acetaminophen [Hydrocodon-Acetaminophen 5-325] 1 - 2 each PO Q6H PRN #7 tablet PRN Reason: pain predniSONE [Deltasone] 60 mg PO DAILY 5 Days #15 tablet Comments: Return anytime for new or worsening symptoms, if not better by Friday, call the local ear nose and throat physicians for an appointment. The closest is in [place], the phone number is [phone].
[2019-04-29 13:10] VITALS: BP 116/53
== END 2019-04-29 13:06 | disposition home or self-care (01) ==
LOC: ED 10:56
DX: J02.8 Acute pharyngitis due to other specified organisms (principal); F17.200 Nicotine dependence, unspecified, uncomplicated
CPT/HCPCS: 87070; 87430; 99283; A9270

== ENCOUNTER 2019-06-12 12:51 | Outpatient (CLI) | payer MEDICAID ==
--- NOTE | 2019-06-15 10:29 | CT Report ---
Reason: COPD Procedure Date: 06/12/2019 Accession Number: [id number] / [id number] Procedure: CT - Low Dose Lung Cancer Screen CPT Code: Final Report FULL RESULT: EXAM CT LUNG SCREEN EXAM DATE: 06/12/2019 01:03 PM. HISTORY: 58-year-old patient with [id number] smoking history. Currently smoking: Unknown. COMPARISON: CHEST ANGIO 12/08/2017 9:14 PM. TECHNIQUE: CT examination of the entire thorax without contrast was performed using low-dose technique. Thin section coronal, axial, sagittal and MIP axial images were obtained. In accordance with CT protocol optimization, one or more of the following dose reduction techniques were utilized for this exam: automated exposure control, adjustment of mA and/or KV based on patient size, or use of iterative reconstructive technique. FINDINGS: Nodules: Right upper lobe: None. Right middle lobe: None. Right lower lobe: None. Left upper lobe: None. Left lower lobe: None. Emphysema: None. Pleura: Unremarkable. Aorta: Unremarkable. Mediastinum: Unremarkable. No mediastinal mass or adenopathy. Coronary calcifications: Mild 3 vessel coronary artery calcification present similar to prior exam. Other pulmonary findings: None. Other extrapulmonary findings: A small hiatal hernia present. Postsurgical changes about the gastroesophageal junction again present. The gallbladder is surgically absent. The left adrenal nodule measuring approximately 4 cm is not significantly changed in size. It again measures low density, approximately 6 HU, consistent with adenoma. IMPRESSION: Lung-RADS ASSESSMENT CATEGORY: 1 - negative. No nodules identified. Probability of malignancy: Less than 1% No change in small hiatal hernia and 4 cm left adrenal adenoma. RECOMMENDATION: Recommended follow up based on ACR Lung-RADS Version 1.1 Guidelines. RADIA
== END 2019-06-12 12:52 | disposition home or self-care (01) ==
LOC: DI 12:51
PROVIDERS: ATTEND Nurse Practitioner Gerontology
DX: Z12.2 Encounter for screening for malignant neoplasm of respiratory organs (principal); F17.210 Nicotine dependence, cigarettes, uncomplicated; J44.9 Chronic obstructive pulmonary disease, unspecified
CPT/HCPCS: 94010; G0297

== ENCOUNTER 2019-06-25 08:54 | Outpatient (CLI) | payer MEDICAID | END 2019-06-25 08:55 | disposition home or self-care (01) | LOC: DI 08:54 | PROVIDERS: ATTEND Nurse Practitioner Gerontology | DX: Z53.9 Procedure and treatment not carried out, unspecified reason (principal) ==

== ENCOUNTER 2019-07-30 15:21 | Outpatient (CLI) | payer MEDICAID | END 2019-07-30 15:22 | disposition home or self-care (01) | LOC: COV 15:21 | PROVIDERS: ATTEND Family Medicine | DX: R05 Cough (principal); R50.9 Fever, unspecified | CPT/HCPCS: 81599 ==

== ENCOUNTER 2019-08-02 08:00 | Outpatient (CLI) | payer MEDICAID ==
[2019-08-02 16:32] LABS: BASOPHILS # (AUTO) 0.1 10^3/uL (0.0-0.1); BASOPHILS % (AUTO) 0.8 %; EOSINOPHILS # (AUTO) 0.1 10^3/uL (0.0-0.7); EOSINOPHILS % (AUTO) 0.8 %; HGB - HEMOGLOBIN 12.6 g/dL (12.0-16.0); LYMPHOCYTES # (AUTO) 1.8 10^3/uL (1.5-3.5); LYMPHOCYTES % (AUTO) 24.8 %; MEAN CORPUSCULAR HEMOGLOBIN 26.9 pg (27.0-31.0); MEAN CORPUSCULAR HGB CONC 31.5 g/dL (32.0-36.0); MEAN CORPUSCULAR VOLUME 85.5 fL (81.0-99.0); MEAN PLATELET VOLUME 10.7 fL (7.9-10.8); MONOCYTES # (AUTO) 0.7 10^3/uL (0.0-1.0); MONOCYTES % (AUTO) 9.1 %; NEUTROPHILS # (AUTO) 4.6 10^3/uL (1.5-6.6); NEUTROPHILS % (AUTO) 63.8 %; PLT - PLATELET COUNT 365 10^3/uL (130-450); RED BLOOD COUNT 4.68 10^6/uL (4.20-5.40); RED CELL DISTRIBUTION WIDTH 15.1 % (12.0-15.0); WHITE BLOOD COUNT 7.2 x10^3/uL (4.8-10.8)
[2019-08-02 16:50] LABS: ALBUMIN 4.1 g/dL (3.2-5.5); ALBUMIN/GLOBULIN RATIO 1.1 (1.0-2.2); BILIRUBIN,TOTAL 0.5 mg/dL (0.2-1.0); CALCIUM 8.8 mg/dL (8.5-10.3); CREATININE 0.6 mg/dL (0.4-1.0); CRP - C-REACTIVE PROTEIN 1.4 mg/dL (0-1.0); TOTAL PROTEIN 7.8 g/dL (6.7-8.2); URIC ACID 4.4 mg/dL (2.6-7.2)
[2019-08-02 17:53] LABS: RHEUMATOID FACTOR NEGATIVE (Negative)
== END 2019-08-02 23:59 | disposition home or self-care (01) ==
LOC: LAB.WCP 08:00
PROVIDERS: ATTEND Physician Assistant Medical
DX: M79.642 Pain in left hand (principal)
CPT/HCPCS: 36415; 80053; 84550; 85025; 85651; 86038; 86140; 86430

== ENCOUNTER 2019-09-18 14:18 | Emergency (ER) | payer MEDICAID ==
[2019-09-18] MEDS ORDERED: KETOROLAC 60 MG/2 ML VIAL IM STA (14:38)
[2019-09-18] MEDS ORDERED: HYDROmorphone 2 MG/ML VIAL IM STA (14:39)
--- NOTE | 2019-09-18 14:41 | ED Physician Documentation ---
PD HPI BACK PAIN - Stated complaint Stated Complaint: LOWER BACK PX - Chief complaint Chief Complaint: Back Pain - History obtained from History obtained from: Patient - History of Present Illness Timing - onset: Other (59-year-old woman with history of osteoarthritis, undifferentiated autoimmune disease, history of back pain, gastric bypass status. She has occasional back pain but never this bad. "Went out" on her 5 days ago. Pain was severe and radiating in the left leg a little bit. No new weakness, numbness, or tingling. She does have some chronic numbness of both feet. Last night because of the pain she fell, she did not directly injure the back, but the pain got much worse. She also complains of some swelling and redness to the right calf and knee area. No shortness of breath. No incontinence or saddle anesthesia. 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 : None HEENT: None Psych: None Musculoskeletal: None Derm: None - Past Surgical History Past Surgical History: Yes General: Cholecystectomy, Appendectomy, Gastric surgery, Hiatal hernia repair /INSTALLATION 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: section, Hysterectomy - Present Medications Home Medications: Ambulatory Orders Medication Instructions Recorded Confirmed Albuterol Sulf [Ventolin Hfa 1 - 2 puffs INH Q4HR PRN #1 inhaler 06/30/18 Inhaler] Pantoprazole [Protonix] 40 mg ORAL BID 06/30/18 06/30/18 Omeprazole 20 mg PO DAILY 10/08/18 10/08/18 Hydrocodone/Acetaminophen 1 each PO Q6H #10 tablet 01/20/19 [Hydrocodone-Acetamin 5-325 mg] Meloxicam [Mobic] 15 mg PO DAILY PRN #20 tablet 04/23/19 diazePAM [Valium] 5 - 10 mg PO TID PRN #15 tablet 04/23/19 Hydrocodone/Acetaminophen 1 - 2 each PO Q6H PRN #7 tablet 04/29/19 [Hydrocodon-Acetaminophen 5-325] predniSONE [Deltasone] 60 mg PO DAILY 5 Days #15 tablet 04/29/19 Cephalexin [Keflex] 500 mg PO Q6H #28 capsule 09/18/19 Oxycodone HCl/Acetaminophen 1 - 2 each PO Q6H PRN #14 tablet 09/18/19 [Percocet 5-325 mg Tablet] - Allergies Allergies/Adverse Reactions: Allergies Allergy/AdvReac Type Severity Reaction Status Date / Time morphine Allergy Headache Verified 09/18/19 14:21 Penicillins Allergy Rash Verified 09/18/19 14:21 - Social History Does the pt smoke?: Yes Smoking Status: Current every day smoker Does the pt drink ETOH?: No Does the pt have substance abuse?: No - Immunizations Immunizations are current?: Yes - POLST Patient has POLST: No PD ED PE NORMAL - Vitals Vital signs reviewed: Yes - General General: Alert and oriented X 3, Other (She appears uncomfortable and winces with any motion.) - Cardiac Cardiac: RRR, No murmur - Respiratory Respiratory: No respiratory distress, Clear bilaterally - Abdomen Abdomen: Non tender - Extremities Extremities: Other (Quite tender to the lower lumbar spine and left paralumbar area, she has diminished reflexes throughout the lower extremities with intact strength and sensation. There is some warmth and redness to the anterior lateral Right vick. Could be cellulitis or just a local area of inflammation.) - Neuro Neuro: Alert and oriented X 3, Normal speech Results - Vitals Vitals: Vital Signs - 24 hr 09/18/19 09/18/19 14:21 15:30 Temperature 37 C Heart Rate 76 63 Respiratory 20 18 Rate Blood Pressure 108/88 H 139/85 H O2 Saturation 98 99 Oxygen O2 Source Room air - Rads (name of study) L spine CT Radiology: EMP read contemporaneously (T12-L1: Mild facet arthropathy L1-L2: Osteophyte. Mild disk bulge. Mild facet arthropathy. L2-L3: Osteophyte. Vacuum disk phenomena. Mild to moderate diffuse bulge. Mild facet hypertrophy, ligamentum flavum thickening. Mild canal stenosis. Narrowing of the inferior neuroforamina. L3-L4: Osteophyte, vacuum disk phenomena. Disk space narrowing. Moderate diffuse bulge. Right neuroforaminal protrusion. Moderate facet hypertrophy, ligamentum from thickening. Canal stenosis. Right neuroforamina narrowing. L4-L5: Uncovering of the disk. Moderate diffuse bulge. Marked facet hypertrophy. Canal stenosis. Bilateral neuroforamina narrowing. L5-S1: Osteophyte, displaced narrowing, vacuum disk phenomena. Moderate diffuse bulge. Moderate facet arthropathy. Bilateral neuroforamina narrowing Musculature: Normal. No fatty atrophy. Other: Small hiatal hernia. ) PD MEDICAL DECISION MAKING - ED course ED course: 59-year-old woman with back and leg pain, she actually looks like she has cellulitis in the leg. DVT is entertained but an ultrasound there was negative for same. The back demonstrates multiple levels of arthritic changes. No evidence of cauda equina. Metastatic disease is certainly considered given that she is a smoker and 59, but no evidence of this on CT imaging. Nothing to suggest abscess or infection in the history or physical. The cellulitis of the right lower extremity is treated with Keflex and prescribed her some pain medication pending follow-up with her primary care physician. Departure - Departure Disposition: Home, Self Care Clinical Impression: Cellulitis of right leg Back pain Qualifiers: Back pain location: low back pain Chronicity: acute Back pain laterality: left Sciatica presence: with sciatica Sciatica laterality: sciatica of left side Qual ified Code(s): M54.42 - Lumbago with sciatica, left side Condition: Good Record reviewed to determine appropriate education?: Yes Instructions: Cellulitis Dc, ED Neck Back Pain General Prescriptions: Cephalexin [Keflex] 500 mg PO Q6H #28 capsule Oxycodone HCl/Acetaminophen [Percocet 5-325 mg Tablet] 1 - 2 each PO Q6H PRN #14 tablet PRN Reason: pain Comments: Elevate the leg is much as possible, return for new or worsening symptoms, especially urinary incontinence, fevers, or pain uncontrolled by pain medications. Follow-up with your primary care physician, next available appointment. Call Friday for that appointment. Do not drink or drive while taking narcotic pain medication. Note that many narcotic pain relievers also contain Tylenol/acetaminophen. Please ensure that your total dose of acetaminophen from all sources does not exceed 3 g (3000 mg) per day. You may get constipated while on this medication. Take a stool softener such as Colace twice a day while you are on it. Also add an aluc-elj-qrrorec laxative such as senna or MiraLAX on any day that you do not have a bowel movement. If you received a narcotic pain medication or sedative while in the emergency department, do not drive for the next 24 hours.
--- NOTE | 2019-09-18 15:28 | CT Report ---
Reason: back pain Procedure Date: 09/18/2019 Accession Number: [id number] / [id number] Procedure: CT - LUMBAR SPINE WO CPT Code: Final Report FULL RESULT: EXAM: CT LUMBAR SPINE WITHOUT CONTRAST EXAM DATE: 09/18/2019 03:00 PM. CLINICAL HISTORY: Back pain. COMPARISONS: None. TECHNIQUE: Thin-section axial images were acquired of the lumbar spine from T12 to S1 without contrast. Post-processing: Coronal and sagittal reformats. Other: None. In accordance with CT protocol optimization, one or more of the following dose reduction techniques were utilized for this exam: automated exposure control, adjustment of mA and/or KV based on patient size, or use of iterative reconstructive technique. FINDINGS: Alignment: Grade 1 anterolisthesis L4 L5 Bones: Five [id number]-[id number] lumbar vertebral bodies are present. No fractures or bone lesions. Disk Levels/Facets: T12-L1: Mild facet arthropathy L1-L2: Osteophyte. Mild disk bulge. Mild facet arthropathy. L2-L3: Osteophyte. Vacuum disk phenomena. Mild to moderate diffuse bulge. Mild facet hypertrophy, ligamentum flavum thickening. Mild canal stenosis. Narrowing of the inferior neuroforamina. L3-L4: Osteophyte, vacuum disk phenomena. Disk space narrowing. Moderate diffuse bulge. Right neuroforaminal protrusion. Moderate facet hypertrophy, ligamentum from thickening. Canal stenosis. Right neuroforamina narrowing. L4-L5: Uncovering of the disk. Moderate diffuse bulge. Marked facet hypertrophy. Canal stenosis. Bilateral neuroforamina narrowing. L5-S1: Osteophyte, displaced narrowing, vacuum disk phenomena. Moderate diffuse bulge. Moderate facet arthropathy. Bilateral neuroforamina narrowing Musculature: Normal. No fatty atrophy. Other: Small hiatal hernia. IMPRESSION: Multilevel disk disease detailed above RADIA
[2019-09-18] MEDS ORDERED: HYDROmorphone 1 MG/ML CARPUJECT IM STA (16:04)
[2019-09-18] MEDS ORDERED: cephALEXin 250 MG CAPSULE PO STA (16:15)
--- NOTE | 2019-09-18 16:23 | Ultrasound Report ---
Reason: RLE pain Procedure Date: 09/18/2019 Accession Number: [id number] / [id number] Procedure: US - Duplex Ext Veins Right CPT Code: Final Report FULL RESULT: EXAM: RIGHT LOWER EXTREMITY VENOUS ULTRASOUND EXAM DATE: 09/18/2019 04:09 PM. CLINICAL HISTORY: Right lower extremity pain, redness, and swelling x3 days. COMPARISON: None. TECHNIQUE: Real-time sonographic vascular imaging was performed by the computer systems security administrator through the lower extremity utilizing both color-flow and Doppler spectral analysis. Multiple traveling representative static images were saved for review. FINDINGS: Common Femoral Vein (CFV): Normal. CFV-GSV Junction: Normal. Profunda Femoral Vein (PFV): Normal. Femoral Vein (FV) Prox: Normal. Femoral Vein (FV) Mid: Normal. Femoral Vein (FV) Dist: Normal. Popliteal Vein: Normal. Posterior Tibial Veins: Limited. No thrombus is seen. Peroneal Veins: Not seen due to edema. Contralateral Side CFV: Normal. Other: None. IMPRESSION: Limited visualization of the calf veins. No evidence for deep venous thrombosis within the visualized structures. RADIA
[2019-09-18 16:40] VITALS: BP 137/70
== END 2019-09-18 16:42 | disposition home or self-care (01) ==
LOC: ED 14:18
DX: M51.16 Intervertebral disc disorders with radiculopathy, lumbar region (principal); M25.78 Osteophyte, vertebrae; M48.061 Spinal stenosis, lumbar region without neurogenic claudication; L03.115 Cellulitis of right lower limb; M35.9 Systemic involvement of connective tissue, unspecified; F17.200 Nicotine dependence, unspecified, uncomplicated; Z98.84 Bariatric surgery status; Z88.0 Allergy status to penicillin; Z88.5 Allergy status to narcotic agent
CPT/HCPCS: 72131; 93971; 96372; 99284; A9270; J1170

== ENCOUNTER 2019-11-01 21:32 | Outpatient (CLI) | payer MEDICAID ==
[2019-11-01 22:18] LABS: BASOPHILS # (AUTO) 0.1 10^3/uL (0.0-0.1); BASOPHILS % (AUTO) 0.7 %; EOSINOPHILS # (AUTO) 0.1 10^3/uL (0.0-0.7); EOSINOPHILS % (AUTO) 1.8 %; HGB - HEMOGLOBIN 12.8 g/dL (12.0-16.0); LYMPHOCYTES % (AUTO) 27.6 %; MEAN CORPUSCULAR HEMOGLOBIN 27.2 pg (27.0-31.0); MEAN CORPUSCULAR HGB CONC 32.2 g/dL (32.0-36.0); MEAN CORPUSCULAR VOLUME 84.7 fL (81.0-99.0); MEAN PLATELET VOLUME 10.2 fL (7.9-10.8); MONOCYTES # (AUTO) 0.8 10^3/uL (0.0-1.0); MONOCYTES % (AUTO) 10.8 %; NEUTROPHILS # (AUTO) 4.3 10^3/uL (1.5-6.6); NEUTROPHILS % (AUTO) 58.8 %; PLT - PLATELET COUNT 312 10^3/uL (130-450); RED CELL DISTRIBUTION WIDTH 15.3 % (12.0-15.0); WHITE BLOOD COUNT 7.2 x10^3/uL (4.8-10.8)
[2019-11-01 22:36] LABS: ALBUMIN 4.3 g/dL (3.2-5.5); ALBUMIN/GLOBULIN RATIO 1.3 (1.0-2.2); ALKALINE PHOSPHATASE 84 IU/L (42-121); ALT ALANINE AMINOTRANSFERASE < 10 IU/L (10-60); AST ASPARTATE AMINOTRANSFERASE 17 IU/L (10-42); BILIRUBIN,TOTAL 0.7 mg/dL (0.2-1.0); BUN - BLOOD UREA NITROGEN 20 mg/dL (6-20); CALCIUM 9.2 mg/dL (8.5-10.3); CARBON DIOXIDE - CO2 25 mmol/L (21-32); CHLORIDE 104 mmol/L (101-111); CREATININE 0.7 mg/dL (0.4-1.0); GLUCOSE 93 mg/dL (70-100); SODIUM 140 mmol/L (135-145); TOTAL PROTEIN 7.6 g/dL (6.7-8.2)
--- NOTE | 2019-11-02 11:23 | XRAY Report ---
PROCEDURE: Knee 4 View BILAT INDICATIONS: Arthropathy TECHNIQUE: 3 views of the right and left knee(s) were acquired. COMPARISON: None. FINDINGS: Bones: No fractures or dislocations. No suspicious bony lesions. Moderate tricompartmental osteoart hritic degenerative changes noted in the left knee including joint space narrowing, subchondral scler osis and marginal osteophytosis. Moderate tricompartment osteoarthritic degenerative changes noted in the right knee including joint space narrowing, subchondral sclerosis and marginal osteophytosis. No erosive changes identified in either the right or left knee. Soft tissues: No joint effusion. No suspicious soft tissue calcifications. IMPRESSION: Moderate bilateral knee tricompartmental osteoarthritis. Reviewed by: Taty Wilhelm MD, PhD on 11/02/2019 11:22 AM PDT Approved by: Taty Wilhelm MD, PhD on 11/02/2019 11:22 AM PDT Station ID: [id number]
--- NOTE | 2019-11-02 11:27 | XRAY Report ---
PROCEDURE: Hips 2V BILAT INDICATIONS: Arthropathy TECHNIQUE: 2 views of the right hip and left hip were acquired. COMPARISON: None FINDINGS: Bones: No fractures or dislocations. No suspicious bony lesions. The visualized pelvic ring appear s intact. Osseous hypertrophy noted in the hips bilaterally. Mild joint space narrowing and subchondr al sclerosis noted in the left hip. Lower lumbar spine degenerative disc disease and facet arthropath y. No osseous erosive changes identified. Soft tissues: No suspicious soft tissue calcifications or masses. IMPRESSION: 1. Moderate left hip osteoarthritis. 2. Mild right hip osteoarthritis. Reviewed by: Taty Wilhelm MD, PhD on 11/02/2019 11:26 AM PDT Approved by: Taty Wilhelm MD, PhD on 11/02/2019 11:26 AM PDT Station ID: [id number]
--- NOTE | 2019-11-02 11:32 | XRAY Report ---
PROCEDURE: Cervical Spine Complete INDICATIONS: Arthropathy TECHNIQUE: 5 view(s) of the cervical spine were acquired. COMPARISON: None. FINDINGS: Bones: No fractures or dislocations to the T1 level. The lateral masses of C1 appear intact on the odontoid view. No suspicious bony lesions. Moderate C4-C5, C5-C6 and C6-C7 degenerative disc changes . Mild C3-C4 degenerative disc changes. Mild C3-C4, C4-C5, C5-C6, C6-C7 and C7-T1 facet arthropathy. Mild right C3-C4 uncovertebral joint hypertrophy. Moderate right and mild left C4-C5 uncovertebral veronica int hypertrophy. Mild bilateral C5-C6 uncovertebral joint hypertrophy. Moderate left C3-4-C5, C5-C6 a nd C6-C7 neural foraminal narrowing. Moderate right C4-C5 and C6-C7 neural foraminal narrowing. Sever e right C5-C6 neural foraminal narrowing. Soft tissues: No prevertebral soft tissue swelling. IMPRESSION: 1. Multilevel degenerative disc disease. 2. Multilevel facet arthropathy. 3. Severe right C5-C6 neural foraminal narrowing. 4. No fracture. No acute osseous lesion. If there is continued clinical concern for pathology, then M RI should be considered for further evaluation. Reviewed by: Taty Wilhelm MD, PhD on 11/02/2019 11:31 AM PDT Approved by: Taty Wilhelm MD, PhD on 11/02/2019 11:31 AM PDT Station ID: [id number]
--- NOTE | 2019-11-02 11:41 | XRAY Report ---
PROCEDURE: Lumbar Spine Complete INDICATIONS: Arthropathy TECHNIQUE: 4 views of the lumbar spine were acquired. COMPARISON: None. FINDINGS: Image quality limited by patient body habitus Bones: 5 nonrib-bearing vertebrae are present. There is approximately 12 degrees of convex left sco liosis. There is mild L3-L4 and L4-L5 anterolisthesis. There is trace L1-L2 and L2-L3 retrolisthesis. No vertebral body compression fractures. No suspicious bony lesions. Moderate L4 1-L2, L2-L3, L3-L4 , L4-L5 and L5-S1 degenerative disc disease. Moderate L2-L3, L3-L4, L4-L5 and L5-S1 facet arthropathy . No osseous erosive changes. Soft tissues: Overlying bowel gas pattern is normal. No suspicious soft tissue calcifications. Oblique images: No pars defects. IMPRESSION: 1. Multilevel degenerative disc disease. 2. Multilevel facet arthropathy. 3. L3-L4 and L4-L5 grade 1 degenerative anterolisthesis. 4. Mild convex left scoliosis. 5. No fracture. No acute osseous lesion. If there is continued clinical concern for pathology, then M RI should be considered for further evaluation. Reviewed by: Taty Wilhelm MD, PhD on 11/02/2019 11:40 AM PDT Approved by: Taty Wilhelm MD, PhD on 11/02/2019 11:40 AM PDT Station ID: [id number]
[2019-11-03 12:15] LABS: HEPATITIS C ANTIBODY NON-REACTIVE (NON-REACTIVE)
[2019-11-03 12:16] LABS: HEPATITIS B SURFACE ANTIGEN NON-REACTIVE (NON-REACTIVE)
[2019-11-04 14:28] LABS: ANA SCREEN NEGATIVE (NEGATIVE)
[2019-11-05 18:44] LABS: HEPATITIS BE ANTIGEN NONREACTIVE
== END 2019-11-01 21:33 | disposition home or self-care (01) ==
LOC: DI 21:32
PROVIDERS: ATTEND Internal Medicine Rheumatology
DX: M17.0 Bilateral primary osteoarthritis of knee (principal); M16.0 Bilateral primary osteoarthritis of hip; M50.321 Other cervical disc degeneration at C4-C5 level; M51.36 Other intervertebral disc degeneration, lumbar region; M41.86 Other forms of scoliosis, lumbar region
CPT/HCPCS: 36415; 72050; 72110; 73521; 80053; 81599; 85025; 85651; 86038; 86140; 86317; 86704; 86705; 86707; 86803; 87340; 87350

== ENCOUNTER 2020-12-08 10:25 | Outpatient (CLI) | payer MEDICAID ==
[2020-12-08 18:36] LABS: BASOPHILS # (AUTO) 0.1 10^3/uL (0.0-0.1); BASOPHILS % (AUTO) 0.7 %; EOSINOPHILS # (AUTO) 0.1 10^3/uL (0.0-0.7); EOSINOPHILS % (AUTO) 1.5 %; HCT - HEMATOCRIT 38.3 % (37.0-47.0); HGB - HEMOGLOBIN 11.9 g/dL (12.0-16.0); LYMPHOCYTES # (AUTO) 1.8 10^3/uL (1.5-3.5); LYMPHOCYTES % (AUTO) 24.9 %; MEAN CORPUSCULAR HEMOGLOBIN 26.9 pg (27.0-31.0); MEAN CORPUSCULAR HGB CONC 31.1 g/dL (32.0-36.0); MEAN CORPUSCULAR VOLUME 86.7 fL (81.0-99.0); MEAN PLATELET VOLUME 11.4 fL (7.9-10.8); MONOCYTES # (AUTO) 0.9 10^3/uL (0.0-1.0); MONOCYTES % (AUTO) 12.4 %; NEUTROPHILS # (AUTO) 4.3 10^3/uL (1.5-6.6); NEUTROPHILS % (AUTO) 60.2 %; PLT - PLATELET COUNT 301 10^3/uL (130-450); RED BLOOD COUNT 4.42 10^6/uL (4.20-5.40); RED CELL DISTRIBUTION WIDTH 15.3 % (12.0-15.0); WHITE BLOOD COUNT 7.2 x10^3/uL (4.8-10.8)
[2020-12-08 18:52] LABS: BILIRUBIN,URINE NEGATIVE (NEGATIVE); GLUCOSE, URINE (UA) NEGATIVE (NEGATIVE); KETONES,URINE (UA) NEGATIVE (NEGATIVE); LEUKOCYTE ESTERASE, URINE NEGATIVE (NEGATIVE); NITRITE,URINE NEGATIVE (NEGATIVE); OCCULT BLOOD,URINE NEGATIVE (NEGATIVE); PROTEIN,URINE NEGATIVE (NEGATIVE); UROBILINOGEN,URINE 1 (NORMAL) E.U./dL (NORMAL)
[2020-12-08 18:57] LABS: FECAL OCCULT BLOOD (FIT) NEGATIVE (NEGATIVE)
[2020-12-08 18:58] LABS: CLARITY,URINE CLEAR (CLEAR)
[2020-12-08 19:12] LABS: ALBUMIN 3.7 g/dL (3.2-5.5); ALBUMIN/GLOBULIN RATIO 1.2 (1.0-2.2); ALKALINE PHOSPHATASE 74 IU/L (42-121); ALT ALANINE AMINOTRANSFERASE < 10 IU/L (10-60); AST ASPARTATE AMINOTRANSFERASE 19 IU/L (10-42); BILIRUBIN,TOTAL 0.5 mg/dL (0.2-1.0); BUN - BLOOD UREA NITROGEN 17 mg/dL (6-20); CALCIUM 8.8 mg/dL (8.5-10.3); CARBON DIOXIDE - CO2 24 mmol/L (21-32); CHLORIDE 106 mmol/L (101-111); CHOLESTEROL 194 mg/dL; CREATININE 0.7 mg/dL (0.4-1.0); GFR - MDRD 103 (>89); GLUCOSE 88 mg/dL (70-100); HDL CHOLESTEROL 48 mg/dL; LDL CHOLESTEROL,CALCULATED 132 mg/dL; LDL/HDL RATIO 2.8 (<4.4); POTASSIUM 4.3 mmol/L (3.5-5.0); SODIUM 139 mmol/L (135-145); TOTAL PROTEIN 6.8 g/dL (6.7-8.2); TRIGLYCERIDES 71 mg/dL; VLDL CHOLESTEROL 14 mg/dL
[2020-12-08 19:16] LABS: THYROID STIMULATING HORMONE 0.95 uIU/mL (0.34-5.60)
[2020-12-08 19:36] LABS: BACTERIA,URINE Rare /HPF (None Seen); MUCUS,URINE Few Strands; RBC,URINE None Seen /HPF (0-5); SQUAMOUS EPITHELIAL CELL,UR FEW Squamous (<= Few); WBC,URINE 0-3 /HPF (0-5)
[2020-12-08 20:42] LABS: ESTIMATED AVERAGE GLUCOSE 126 mg/dL (70-100)
== END 2020-12-08 23:59 | disposition home or self-care (01) ==
LOC: LAB.WCP 10:25
PROVIDERS: ATTEND Nurse Practitioner
DX: R53.83 Other fatigue (principal); Z13.220 Encounter for screening for lipoid disorders; G62.9 Polyneuropathy, unspecified; Z12.11 Encounter for screening for malignant neoplasm of colon
CPT/HCPCS: 36415; 80050; 80061; 81001; 82274; 82607; 83036; 83721; 83921; 87086

== ENCOUNTER 2021-07-24 11:07 | Emergency (ER) | payer MEDICAID ==
[2021-07-24 11:38] LABS: BASOPHILS # (AUTO) 0.1 10^3/uL (0.0-0.1); BASOPHILS % (AUTO) 0.3 %; EOSINOPHILS % (AUTO) 0.1 %; HCT - HEMATOCRIT 39.6 % (37.0-47.0); HGB - HEMOGLOBIN 12.8 g/dL (12.0-16.0); LYMPHOCYTES # (AUTO) 1.6 10^3/uL (1.5-3.5); LYMPHOCYTES % (AUTO) 10.9 %; MEAN CORPUSCULAR HEMOGLOBIN 27.1 pg (27.0-31.0); MEAN CORPUSCULAR HGB CONC 32.3 g/dL (32.0-36.0); MEAN CORPUSCULAR VOLUME 83.7 fL (81.0-99.0); MEAN PLATELET VOLUME 10.4 fL (7.9-10.8); MONOCYTES % (AUTO) 13.7 %; NEUTROPHILS # (AUTO) 10.7 10^3/uL (1.5-6.6); NEUTROPHILS % (AUTO) 74.7 %; PLT - PLATELET COUNT 291 10^3/uL (130-450); RBC MORPHOLOGY (MULTIPLE) 2+ ANISOCYTOSIS (NORMAL); RED BLOOD COUNT 4.73 10^6/uL (4.20-5.40); RED CELL DISTRIBUTION WIDTH 14.6 % (12.0-15.0); SLIDE REVIEW? Indicated; WHITE BLOOD COUNT 14.4 x10^3/uL (4.8-10.8)
--- NOTE | 2021-07-24 11:42 | XRAY Report ---
PROCEDURE: Chest 1 View X-Ray INDICATIONS: Chest pain TECHNIQUE: One view of the chest was acquired. COMPARISON: 10/08/2018 FINDINGS: Surgical changes and devices: None. Lungs and pleura: No pleural effusions or pneumothorax. Lungs are clear. Mediastinum: Mediastinal contours appear normal. Heart size is normal. Bones and chest wall: No suspicious bony lesions. Overlying soft tissues appear unremarkable. IMPRESSION: No acute process. Reviewed by: Kyel Sloan MD on 07/24/2021 11:40 AM PDT Approved by: Kyle Sloan MD on 07/24/2021 11:40 AM PDT Station ID: [id number]
[2021-07-24 11:56] LABS: ALBUMIN 4.3 g/dL (3.2-5.5); ALBUMIN/GLOBULIN RATIO 1.2 (1.0-2.2); ALKALINE PHOSPHATASE 79 IU/L (42-121); ALT ALANINE AMINOTRANSFERASE < 10 IU/L (10-60); AST ASPARTATE AMINOTRANSFERASE 20 IU/L (10-42); BILIRUBIN,TOTAL 0.9 mg/dL (0.2-1.0); BUN - BLOOD UREA NITROGEN 14 mg/dL (6-20); CALCIUM 9.3 mg/dL (8.5-10.3); CARBON DIOXIDE - CO2 26 mmol/L (21-32); CHLORIDE 100 mmol/L (101-111); CREATININE 0.7 mg/dL (0.4-1.0); GFR - MDRD 103 (>89); GLUCOSE 95 mg/dL (70-100); LIPASE 26 U/L (22-51); POTASSIUM 3.8 mmol/L (3.5-5.0); SODIUM 136 mmol/L (135-145)
--- NOTE | 2021-07-24 12:45 | XRAY Report ---
PROCEDURE: Shoulder 3 View RT INDICATIONS: pain, limited ROM TECHNIQUE: 3 views of the right shoulder COMPARISON: None. FINDINGS: There is no fracture or dislocation. Moderate acromioclavicular degenerative change with widening of the acromioclavicular joint. Mild glenohumeral degenerative changes. IMPRESSION: Moderate degenerative changes in the shoulder. Reviewed by: Christos Dumont MD on 07/24/2021 12:43 PM PDT Approved by: Christos Dumont MD on 07/24/2021 12:43 PM PDT Station ID: [id number]
[2021-07-24] MEDS ORDERED: HYDROmorphone 1 MG/ML CARPUJECT IVP STA (13:21)
[2021-07-24] MEDS ORDERED: ONDANSETRON 4 MG/2 ML VIAL IVP STA (13:21)
[2021-07-24] MEDS ORDERED: HYDROcod/ACETAM 5/325 MG TABLET PO STA (13:22)
[2021-07-24 13:28] VITALS: BP 155/94
--- NOTE | 2021-07-24 13:31 | ED Physician Documentation ---
History of Present Illness - Stated complaint Stated Complaint: CHEST/RT SHOULDER PX - Chief complaint Chief Complaint: Cardiac - History obtained from History obtained from: Patient - Additonal information Additional information: The patient comes to the emergency department with chief complaint of right shoulder pain. She states she has a history of repeated dislocations as a teenager and feels like she may have dislocated her shoulder again, because the pain feels the same. She states it hurts to move the shoulder. She denies distinct trauma. She did not fall or hit anything. She denies any movement that precipitated the pain. She states she woke up with that after sleeping and that it has just been painful all day. She has had some tightness in her chest which is somewhat worse with deep breaths. No left shoulder pain. No vomiting but patient has had some nausea. No abdominal pain. No swelling in her legs. No other complaints at this time. Review of Systems Ten Systems: 10 systems reviewed and negative Constitutional: reports: Reviewed and negative Eyes: reports: Reviewed and negative Ears: reports: Reviewed and negative Nose: reports: Reviewed and negative Throat: reports: Reviewed and negative Cardiac: reports: Chest pain / pressure (Tightness) Respiratory: reports: Reviewed and negative GI: reports: Nausea : reports: Reviewed and negative Skin: reports: Reviewed and negative Musculoskeletal: reports: Joint pain (Right shoulder.) Neurologic: reports: Reviewed and negative Psychiatric: reports: Reviewed and negative Endocrine: reports: Reviewed and negative Immunocompromised: reports: Reviewed and negative PD PAST MEDICAL HISTORY - Past Medical History Cardiovascular: None Respiratory: Asthma, Pneumonia Neuro: None Endocrine/Autoimmune: None GI: None COMMUNITY HEALTH PROMOTER: None : None HEENT: None Psych: None Musculoskeletal: None Derm: None - Past Surgical History Past Surgical History: Yes General: Cholecystectomy, Appendectomy, Gastric surgery, Hiatal hernia repair /COMMUNITY HEALTH PROMOTER: section, Hysterectomy - Present Medications Home Medications: Ambulatory Orders Medication Instructions Recorded Confirmed Albuterol Sulf [Ventolin Hfa 1 - 2 puffs INH Q4HR PRN #1 inhaler 06/30/18 Inhaler] Pantoprazole [Protonix] 40 mg ORAL BID 06/30/18 06/30/18 Omeprazole 20 mg PO DAILY 10/08/18 10/08/18 Hydrocodone/Acetaminophen 1 each PO Q6H #10 tablet 01/20/19 [Hydrocodone-Acetamin 5-325 mg] Meloxicam [Mobic] 15 mg PO DAILY PRN #20 tablet 04/23/19 diazePAM [Valium] 5 - 10 mg PO TID PRN #15 tablet 04/23/19 Hydrocodone/Acetaminophen 1 - 2 each PO Q6H PRN #7 tablet 04/29/19 [Hydrocodon-Acetaminophen 5-325] predniSONE [Deltasone] 60 mg PO DAILY 5 Days #15 tablet 04/29/19 Oxycodone HCl/Acetaminophen 1 - 2 each PO Q6H PRN #14 tablet 09/18/19 [Percocet 5-325 mg Tablet] cephALEXin [Keflex] 500 mg PO Q6H #28 capsule 09/18/19 HYDROcod/ACETAM 5/325 [Wisner 5/325] 1 - 2 tablet PO Q6H PRN #10 tablet 07/24/21 - Allergies Allergies/Adverse Reactions: Allergies Allergy/AdvReac Type Severity Reaction Status Date / Time morphine Allergy Headache Verified 07/24/21 11:14 Penicillins Allergy Rash Verified 07/24/21 11:14 - Social History Does the pt smoke?: Yes Smoking Status: Current every day smoker Does the pt drink ETOH?: No Does the pt have substance abuse?: No - Immunizations Immunizations are current?: Yes - POLST Patient has POLST: No PD ED PE NORMAL - Vitals Vital signs reviewed: Yes - General General: Alert and oriented X 3, No acute distress, Well developed/nourished - HEENT HEENT: Atraumatic, PERRL, EOMI, Moist mucous membranes - Neck Neck: Supple, no meningeal sign - Cardiac Cardiac: RRR, No murmur, Strong equal pulses - Respiratory Respiratory: No respiratory distress, Clear bilaterally - Abdomen Abdomen: Soft, Non tender, Non distended - Derm Derm: Normal color, Warm and dry, No rash - Extremities Extremities: No deformity, No edema, No calf tenderness / cord, Other - Neuro Neuro: Alert and oriented X 3 - Psych Psych: Normal mood, Normal affect Results - Vitals Vitals: Vital Signs - 24 hr 07/24/21 07/24/21 07/24/21 11:15 11:56 13:27 Temperature 37.3 C Heart Rate 68 78 76 Respiratory 19 22 18 Rate Blood Pressure 160/70 H 104/62 155/94 H O2 Saturation 99 99 97 07/24/21 13:44 Temperature Heart Rate 76 Respiratory 18 Rate Blood Pressure 155/94 H O2 Saturation 97 Oxygen O2 Source Room air - EKG (time done) 1114 Rate: Rate (enter#) (69) Rhythm: NSR [place]: Normal QRS: Normal Ischemia: Normal ST segments Computer interpretation: Disagree with computer (Normal sinus rhythm, not atrial fibrillation; P waves visible in leads V1, V3, V4, and V5, with a regular rhythm.Some baseline artifact in certain leads obscuring P waves) - Labs Labs: Laboratory Tests 07/24/21 07/24/21 07/24/21 11:31 11:31 11:31 WBC 14.4 H RBC 4.73 Hgb 12.8 Hct 39.6 MCV 83.7 MCH 27.1 MCHC 32.3 RDW 14.6 Plt Count 291 MPV 10.4 Neut # (Auto) 10.7 H Lymph # (Auto) 1.6 Martin # (Auto) 2.0 H Eos # (Auto) 0.0 Baso # (Auto) 0.1 Absolute Nucleated RBC 0.00 Nucleated RBC % 0.0 Manual Slide Review Indicated RBC Morph Micro Appear 2+ ANISOCYTOSIS Sodium 136 Potassium 3.8 Chloride 100 L Carbon Dioxide 26 Anion Gap 10.0 BUN 14 Creatinine 0.7 Estimated GFR (MDRD) 103 Glucose 95 Calcium 9.3 Total Bilirubin 0.9 AST 20 ALT < 10 L Alkaline Phosphatase 79 Troponin I High Sens 4.0 Total Protein 8.0 Albumin 4.3 Globulin 3.7 Albumin/Globulin Ratio 1.2 Lipase 26 - Rads (name of study) chest xr Radiology: Final report received, EMP read indepedently, See rad report (Negat shaun) Right shoulder x-ray Radiology: Final report received, EMP read indepedently, See rad report (DJD otherwise negative) PD MEDICAL DECISION MAKING - ED course Complexity details: reviewed results, re-evaluated patient, considered differential, d/w patient ED course: The patient was sent for x-ray of her right shoulder, which showed DJD, but no dislocation. Work-up for chest pain was unremarkable. The patient was treated symptomatically for her pain. We have discussed management of symptoms, as well as the usual indications for return. Departure - Departure Disposition: 01 Home, Self Care Clinical Impression: Shoulder arthritis Condition: Stable Instructions: ED Degenerative Joint Disease Prescriptions: HYDROcod/ACETAM 5/325 [Wisner 5/325] 1 - 2 tablet PO Q6H PRN #10 tablet PRN Reason: Pain Comments: Your labs, EKG, and chest x-ray look good. Your shoulder x-ray does not show a dislocation, but you do have some arthritis in the shoulder which is most likely the cause of the pain. You may take the pain medication as needed for this. Please follow-up with your doctor to discuss further needs. Your prescription has been electronically transmitted to [facility] in [place]. Discharge Date/Time: 07/24/21 13:55
== END 2021-07-24 13:55 | disposition home or self-care (01) ==
LOC: ED 11:07
DX: M19.011 Primary osteoarthritis, right shoulder (principal); F17.200 Nicotine dependence, unspecified, uncomplicated
CPT/HCPCS: 36415; 71045; 73030; 80053; 83690; 84484; 85025; 93005; 96374; 99283; 99284; A9270

== ENCOUNTER 2022-09-02 10:32 | Outpatient (CLI) | payer MEDICAID ==
--- NOTE | 2022-09-02 11:36 | MRI Report ---
PROCEDURE: CERVICAL SPINE WO INDICATIONS: PARESTHESIA TECHNIQUE: Noncontrast sagittal T1 spin echo and T2 fast spin echo, sagittal STIR, foraminal oblique sagittal T2 fast spin echo, and axial gradient echo or T2 fast spin echo through the cervical spine. COMPARISON: Plain films dated 11/01/2019 FINDINGS: Image quality: Excellent. Alignment and Curvature: There is loss of normal cervical lordosis. 2 mm of retrolisthesis of C2 on C3, C5 on C6 and C6 on C7. Bone Marrow: Marrow demonstrates normal overall signal. Mild reactive signal throughout the endplat es of the cervical and upper thoracic spine. Spinal Cord: Visualized spinal cord has normal size. Focal region of moderate T2 signal elevation wi thin the left hemicord at the C3-C4 disc space level measuring roughly 5 mm No cerebellar tonsillar h erniation. Paraspinous Soft Tissues: No paravertebral masses. Prevertebral soft tissues are normal in thicknes s. C2-C3: Congenital canal stenosis. Mild disc desiccation and diffuse disc bulge. Mild facet and uncov ertebral hypertrophy bilaterally. Moderate canal stenosis. Moderate right and mild left foraminal jing nosis. C3-C4: Congenital canal stenosis. Moderate disc desiccation. Mild diffuse disc bulge with superimpo sed central protrusion. Mild facet and uncovertebral hypertrophy. Severe canal stenosis. Moderate cor d flattening. Mild bilateral foraminal stenosis C4-C5: Congenital canal stenosis. Moderate disc height loss and desiccation. Mild diffuse disc bulge with superimposed right paracentral protrusion. Mild facet and uncovertebral hypertrophy. Severe can al stenosis. Mild cord flattening. Severe right and moderate left foraminal stenosis. Right C5 nerve root compression. C5-C6: Congenital canal stenosis. Moderate disc height loss and desiccation. Mild diffuse disc bulge . Mild facet and uncovertebral hypertrophy bilaterally. Severe canal stenosis. Mild cord flattening. Severe bilateral foraminal stenosis with bilateral C6 nerve root compression. C6-C7: Moderate disc height loss and desiccation. Mild diffuse disc bulge. Congenital canal stenosis . Mild facet and uncovertebral hypertrophy bilaterally. Severe canal stenosis. Mild cord flattening. Severe right and moderate left foraminal stenosis. Right C7 nerve root compression. C7-T1: Mild disc height loss and desiccation. Mild facet and uncovertebral hypertrophy bilaterally. Mild canal stenosis. Moderate bilateral foraminal stenosis. IMPRESSION: 1. Diffuse congenital canal stenosis with superimposed disc and facet disease, as well as uncovertebr al hypertrophy. 2. Multilevel canal stenoses, worst at C3-C4, C4-C5, C5-C6, and C6-C7, where there is associated cord flattening. 3. Cord signal abnormality at the C3-C4 disc space level, consistent with a region of cord injury/scl erosis. 4. Multilevel foraminal stenoses, worst at C4-C5, C5-C6, and C6-C7, where there is associated intrafo raminal nerve root compression. Recommend correlation with clinical symptoms to ascertain relevance o f these findings. Reviewed by: Kyle Sloan MD on 09/02/2022 11:35 AM PDT Approved by: Kyle Sloan MD on 09/02/2022 11:35 AM PDT Station ID: [id number]
== END 2022-09-02 10:33 | disposition home or self-care (01) ==
LOC: DI 10:32
PROVIDERS: ATTEND Psychiatry & Neurology Neurology
DX: M47.812 Spondylosis without myelopathy or radiculopathy, cervical region (principal); M48.02 Spinal stenosis, cervical region; M50.11 Cervical disc disorder with radiculopathy, high cervical region

== ENCOUNTER 2023-08-16 10:49 | Outpatient (CLI) | payer MEDICAID | END 2023-08-16 23:59 | disposition critical access hospital (66) | LOC: EMS 10:49 | DX: M79.672 Pain in left foot (principal); M79.671 Pain in right foot; M25.572 Pain in left ankle and joints of left foot; M25.571 Pain in right ankle and joints of right foot; R60.0 Localized edema; R11.0 Nausea; R42 Dizziness and giddiness | CPT/HCPCS: A0425; A0429; A0999 ==

== ENCOUNTER 2023-08-16 11:11 | Emergency (ER) | payer MEDICAID ==
--- NOTE | 2023-08-16 11:46 | ED Physician Documentation ---
History of Present Illness - Stated complaint Stated Complaint: BILAT LEG PX - Chief complaint Chief Complaint: General - Additonal information Additional information: 62 history of asthma, pneumonia, recent spinal surgery earlier this summer presents emergency department for bilateral lower extremity swelling. Patient said that it started about a week ago but the pain is gotten significantly worse within the last day or so. She says this happens about once a year but this feels significantly worse than it has been in the past. She also endorses a mild nausea with mild shortness of breath. No history of heart failure no recent medication changes no fevers or chills.Patient also reports an intermittent left lower quadrant pain over the last week or so no diarrhea constipation no urinary urgency or frequency. PD PAST MEDICAL HISTORY - Past Medical History Past Medical History: Yes Cardiovascular: None Respiratory: Asthma, Pneumonia Neuro: None Endocrine/Autoimmune: None GI: None PRIMARY CARE COORDINATOR: None : None HEENT: None Psych: None Musculoskeletal: None Derm: None - Past Surgical History Past Surgical History: Yes General: Cholecystectomy, Appendectomy, Gastric surgery, Hiatal hernia repair /PRIMARY CARE COORDINATOR: section, Hysterectomy - Present Medications Home Medications: Ambulatory Orders Medication Instructions Recorded Confirmed Albuterol Sulf [Ventolin Hfa 1 - 2 puffs INH Q4HR PRN #1 inhaler 06/30/18 08/16/23 Inhaler] Atorvastatin [Lipitor] 1 tab PO DAILY 08/16/23 08/16/23 Carbidopa/Levodopa 25/100 [Sinemet 1 tab PO DAILY 08/16/23 08/16/23 25 mg/100 mg] DULoxetine [Cymbalta] 1 cap PO PRN PRN 08/16/23 08/16/23 Gabapentin [Neurontin] 1 cap PO DAILY 08/16/23 08/16/23 oxyCODONE [Roxicodone] 5 mg PO Q4-6H PRN #15 tablet 08/16/23 - Allergies Allergies/Adverse Reactions: Allergies Allergy/AdvReac Type Severity Reaction Status Date / Time morphine Allergy Headache Verified 08/16/23 11:24 Penicillins Allergy Rash Verified 08/16/23 11:25 - Social History Does the pt smoke?: Yes Smoking Status: Current every day smoker Does the pt drink ETOH?: No Does the pt have substance abuse?: No - Immunizations Immunizations are current?: Yes - POLST Patient has POLST: No PD ED PE NORMAL - Vitals Vital signs reviewed: Yes - General General: Alert and oriented X 3, No acute distress, Well developed/nourished - Cardiac Cardiac: RRR, No murmur, No gallop, Strong equal pulses - Respiratory Respiratory: No respiratory distress, Clear bilaterally - Abdomen Abdomen: Normal bowel sounds, Soft, Non tender, Non distended, No organomegaly - Derm Derm: Normal color, Warm and dry, No rash - Extremities Extremities: Other (BLE swelling, non pitting) - Neuro Neuro: Alert and oriented X 3, 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6 Plt Count 328 MPV 10.1 Neut # (Auto) 11.0 H Lymph # (Auto) 1.1 L [place] # (Auto) 2.0 H Eos # (Auto) 0.0 Baso # (Auto) 0.1 Absolute Nucleated RBC 0.00 Nucleated RBC % 0.0 Manual Slide Review Indicated WBC Morphology NORMAL APPEARANCE Platelet Estimate NORMAL (130-450,000) Platelet Morphology NORMAL APPEARANCE RBC Morph Micro Appear NORMAL APPEARANCE D-Dimer 355.4 H Sodium 136 Potassium 4.3 Chloride 102 Carbon Dioxide 27 Anion Gap 7.0 BUN 15 Creatinine 0.7 Estimated GFR (MDRD) 102 Glucose 102 Calcium 9.6 Magnesium 1.9 Total Bilirubin 0.7 AST 17 ALT 8 L Alkaline Phosphatase 81 B-Natriuretic Peptide Total Protein 7.5 Albumin 4.1 Globulin 3.4 Albumin/Globulin Ratio 1.2 Lipase < 10 L 08/16/23 11:45 WBC RBC Hgb Hct MCV MCH MCHC RDW Plt Count MPV Neut # (Auto) Lymph # (Auto) [place] # (Auto) Eos # (Auto) Baso # (Auto) Absolute Nucleated RBC Nucleated RBC % Manual Slide Review WBC Morphology Platelet Estimate Platelet Morphology RBC Morph Micro Appear D-Dimer Sodium Potassium Chloride Carbon Dioxide Anion Gap BUN Creatinine Estimated GFR (MDRD) Glucose Calcium Magnesium Total Bilirubin AST ALT Alkaline Phosphatase B-Natriuretic Peptide 63 Total Protein Albumin Globulin Albumin/Globulin Ratio Lipase - Rads (name of study) Bilateral lower extremity venous duplex Relevant Findings:: Final report received, EMP independent interpretation of test, Other (No DVT) CT abdomen pelvis with Relevant Findings:: Final report received, EMP independent interpretation of test, Other (No mass, indeterminate density left adrenal nodule slightly progressed since September 2017) PD Medical Decision Making - ED course ED course: 62-year-old female presents emergency department for bilateral lower extremity swelling. Differentials include but are not limited to DVT, mass pushing down on IVC to cause bilateral lower extremity swelling, CHF. Patient denied any shortness of breath or chest pain while she was here in the emergency department she did endorse and some intermittent abdominal pain. Labs are collected white count slightly elevated at 14.2 neutrophils elevated at 11.0. Upon my chart review this appears to be patient's baseline. CMP does not show any electrolyte abnormalities normal lipase, D-dimer slightly elevated at 355 so went ahead and pursued a bilateral venous duplex although bilateral DVT is very uncommon there was suspicion for a possible iliac DVT that could be causing bilateral lower extremity swelling, bilateral DVT is found to be negative. BNP was also found to be within normal limits making me less suspicious for possible CHF patient also did not have pitting edema and no rhonchi or wheezing. Went ahead and decided to pursue an abdomen pelvis CT with contrast for further evaluation for more complete investigation and this also was found to be unremarkable. Pain was controlled with IV Dilaudid. I am prescribing a short course of short-acting opioid pain medication for this patient. I have reviewed the patients JAVA LEAD and no concerning findings were noted. I have discussed that the opioids are for short term therapy only, and will not be refilled from the ED. At this point in time I am not sure what is causing this bilateral lower extremity swelling. 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 Patient is able to give good teach back understands return precautions is leaving with her daughter. All questions have been answered. Departure - Departure Disposition: 01 Home, Self Care Clinical Impression: Swelling of both lower extremities Leukocytosis Qualifiers: Leukocytosis type: other Qualified Code(s): D72.828 - Other elevated white blood cell count Instructions: ED Edema Legs Bilateral Prescriptions: oxyCODONE [Roxicodone] 5 mg PO Q4-6H PRN #15 tablet PRN Reason: Pain >8 Comments: Thank you for trusting us with your care. We have completed a bilateral lower extremity venous duplex as well as a CT abdomen pelvis for further evaluation of what is causing your bilateral lower extremity swelling. At this point in time we are not seeing anything super obvious or concerning and as we discussed I want you to follow-up with your primary care provider or your neurologist and your motocross racer for further evaluation of this. I have attached the CT results below for your personal reading I have sent a prescription of oxycodone to your preferred pharmacy to help with your pain as you continue to navigate what is causing this. I am prescribing a short course of short-acting opioid pain medication for this patient. I have reviewed the patients JAVA LEAD and no concerning findings were noted. I have discussed that the opioids are for short term therapy only, and will not be refilled from the ED. FINDINGS: Image quality: Diagnostic. Lower chest: Unremarkable. Liver: No solid mass. Gallbladder and biliary tree: Surgically absent. No biliary dilation, accounting for post- cholecystectomy state. Spleen: No splenomegaly. Pancreas: No pancreatic ductal dilation. Adrenals: Left adrenal mass measuring 5 cm of indeterminate density. Kidneys and ureters: No hydronephrosis. No renal cystic lesion which requires follow up. No solid mass. Stomach, bowel and peritoneum: No bowel distension. No pathologic free fluid. Status post bariatric surgery. Lymph nodes: No central or retroperitoneal adenopathy. Vessels: No infrarenal aortic aneurysm. PELVIS Reproductive organs: Status post cystectomy. Bladder: No abnormal wall thickening, accounting for underdistention. Pelvic lymph nodes: No pelvic adenopathy by size criteria. Bones: No aggressive osseous abnormality. Anterolisthesis of L4 on L5. Moderate disc disease and facet arthrosis. Other: No significant ventral or inguinal hernia. IMPRESSION: There is no mass within the abdomen or pelvis to explain bilateral extremity edema. Indeterminate density left adrenal nodule has slightly progressed in size from October 17, 2017, given growth consider routine dedicated CT imaging. Reviewed by: Luis Daniel Dumont MD on 08/16/2023 3:18 PM AKDT Approved by: Luis Daniel Dumont MD on 08/16/2023 3:18 PM AKDT Forms: PCP List Discharge Date/Time: 08/16/23 17:05
[2023-08-16 11:55] LABS: BASOPHILS # (AUTO) 0.1 10^3/uL (0.0-0.1); BASOPHILS % (AUTO) 0.4 %; EOSINOPHILS % (AUTO) 0.1 %; HCT - HEMATOCRIT 37.8 % (37.0-47.0); HGB - HEMOGLOBIN 11.9 g/dL (12.0-16.0); LYMPHOCYTES # (AUTO) 1.1 10^3/uL (1.5-3.5); LYMPHOCYTES % (AUTO) 7.8 %; MEAN CORPUSCULAR HEMOGLOBIN 26.3 pg (27.0-31.0); MEAN CORPUSCULAR HGB CONC 31.5 g/dL (32.0-36.0); MEAN CORPUSCULAR VOLUME 83.6 fL (81.0-99.0); MEAN PLATELET VOLUME 10.1 fL (7.9-10.8); MONOCYTES % (AUTO) 13.8 %; NEUTROPHILS % (AUTO) 77.4 %; PLT - PLATELET COUNT 328 10^3/uL (130-450); RED BLOOD COUNT 4.52 10^6/uL (4.20-5.40); RED CELL DISTRIBUTION WIDTH 14.6 % (12.0-15.0); WHITE BLOOD COUNT 14.2 x10^3/uL (4.8-10.8)
[2023-08-16 11:57] LABS: SLIDE REVIEW? Indicated
[2023-08-16 12:09] LABS: MAGNESIUM 1.9 mg/dL (1.7-2.3)
[2023-08-16 12:14] LABS: ALBUMIN 4.1 g/dL (3.2-5.5); ALBUMIN/GLOBULIN RATIO 1.2 (1.0-2.2); ALKALINE PHOSPHATASE 81 IU/L (42-121); ALT ALANINE AMINOTRANSFERASE 8 IU/L (10-60); AST ASPARTATE AMINOTRANSFERASE 17 IU/L (10-42); BILIRUBIN,TOTAL 0.7 mg/dL (0.2-1.0); BUN - BLOOD UREA NITROGEN 15 mg/dL (6-20); CALCIUM 9.6 mg/dL (8.5-10.3); CARBON DIOXIDE - CO2 27 mmol/L (21-32); CHLORIDE 102 mmol/L (101-111); CREATININE 0.7 mg/dL (0.6-1.3); GFR - MDRD 102 (>89); GLUCOSE 102 mg/dL (74-104); LIPASE < 10 U/L (11-82); POTASSIUM 4.3 mmol/L (3.5-4.5); SODIUM 136 mmol/L (135-145); TOTAL PROTEIN 7.5 g/dL (6.4-8.9)
[2023-08-16 12:15] LABS: PLATELET ESTIMATE, MANUAL NORMAL (130-450,000) (NORMAL); PLATELET MORPHOLOGY NORMAL APPEARANCE (NORMAL); RBC MORPHOLOGY (MULTIPLE) NORMAL APPEARANCE (NORMAL); WBC MORPHOLOGY (MULTIPLE) NORMAL APPEARANCE (NORMAL)
[2023-08-16] MEDS: HYDROmorphone 0.5 MG/0.5 ML SYRINGE IVP STA ×2 (12:20→13:18)
[2023-08-16] MEDS: ONDANSETRON 4 MG/2 ML VIAL IVP STA (13:17)
[2023-08-16 13:50] VITALS: O2SAT 98
--- NOTE | 2023-08-16 14:59 | Ultrasound Report ---
PROCEDURE: Duplex Ext Veins Bilateral INDICATIONS: Nubia Fair DNP TECHNIQUE: Real-time imaging, as well as color and pulse Doppler interrogation, were performed of the deep veins of both legs from the inguinal ligament to the popliteal fossa. Attempted visualization of the calf veins was performed. COMPARISON: None FINDINGS: The deep veins are normally compressible, and free of intraluminal thrombus. Color and pu lse Doppler demonstrate normal phasic intravascular flow. There is normal augmentation response to d istal compression maneuver. IMPRESSION: No deep venous thrombosis of the visualized lower extremities. Reviewed by: Luis Daniel Dumont MD on 08/16/2023 1:58 PM TRIXIE Approved by: Luis Daniel Dumont MD on 08/16/2023 1:58 PM TRIXIE Station ID: [id number]
[2023-08-16] MEDS ORDERED: iohexoL-300 100 ML VIAL ONE (15:10)
--- NOTE | 2023-08-16 16:19 | CT Report ---
PROCEDURE: Abdomen/Pelvis W INDICATIONS: Severe BLE swelling, r/o mass? CONTRAST: 100ml omni 300 TECHNIQUE: After the administration of intravenous contrast, a CT scan of the abdomen and pelvis was performed. Images were recorded and evaluated at appropriate window settings. Reformats: coronal and sagittal. F or radiation dose reduction, the following was used: automated exposure control, adjustment of mA and /or kV according to patient size. COMPARISON: None. FINDINGS: Image quality: Diagnostic. Lower chest: Unremarkable. Liver: No solid mass. Gallbladder and biliary tree: Surgically absent. No biliary dilation, accounting for post-cholecystec penny state. Spleen: No splenomegaly. Pancreas: No pancreatic ductal dilation. Adrenals: Left adrenal mass measuring 5 cm of indeterminate density. Kidneys and ureters: No hydronephrosis. No renal cystic lesion which requires follow up. No solid mas s. Stomach, bowel and peritoneum: No bowel distension. No pathologic free fluid. Status post bariatric s urgery. Lymph nodes: No central or retroperitoneal adenopathy. Vessels: No infrarenal aortic aneurysm. PELVIS Reproductive organs: Status post cystectomy. Bladder: No abnormal wall thickening, accounting for underdistention. Pelvic lymph nodes: No pelvic adenopathy by size criteria. Bones: No aggressive osseous abnormality. Anterolisthesis of L4 on L5. Moderate disc disease and face t arthrosis. Other: No significant ventral or inguinal hernia. IMPRESSION: There is no mass within the abdomen or pelvis to explain bilateral extremity edema. Indeterminate density left adrenal nodule has slightly progressed in size from October 17, 2017, given g rowth consider routine dedicated CT imaging. Reviewed by: Luis Daniel Dumont MD on 08/16/2023 3:18 PM TRIXIE Approved by: Luis Daniel Dumont MD on 08/16/2023 3:18 PM AKDT Station ID: [id number]
[2023-08-16] MEDS: oxyCODONE 5 MG TABLET PO STA (16:50)
[2023-08-16 17:05] VITALS: BP 142/82
[2023-08-16] MEDS: iohexoL-300 100 ML VIAL IVP ONE (17:33)
== END 2023-08-16 17:05 | disposition home or self-care (01) ==
LOC: EDUNIT# → ED 11:11
DX: M79.89 Other specified soft tissue disorders (principal); D72.829 Elevated white blood cell count, unspecified; F17.200 Nicotine dependence, unspecified, uncomplicated; Z79.899 Other long term (current) drug therapy
CPT/HCPCS: 36415; 74177; 80053; 83690; 83735; 83880; 85025; 85379; 93970; 96374; 96375; 96376; 99284; 99285; A9270; J1170; Q9967

== ENCOUNTER 2023-10-22 09:46 | Outpatient (CLI) | payer SELFPAY ==
[2023-10-22 11:57] LABS: BASOPHILS # (AUTO) 0.1 10^3/uL (0.0-0.1); BASOPHILS % (AUTO) 0.9 %; EOSINOPHILS # (AUTO) 0.2 10^3/uL (0.0-0.7); EOSINOPHILS % (AUTO) 3.1 %; HCT - HEMATOCRIT 39.1 % (37.0-47.0); HGB - HEMOGLOBIN 12.2 g/dL (12.0-16.0); LYMPHOCYTES % (AUTO) 29.2 %; MEAN CORPUSCULAR HEMOGLOBIN 26.3 pg (27.0-31.0); MEAN CORPUSCULAR HGB CONC 31.2 g/dL (32.0-36.0); MEAN CORPUSCULAR VOLUME 84.4 fL (81.0-99.0); MEAN PLATELET VOLUME 10.7 fL (7.9-10.8); MONOCYTES # (AUTO) 1.1 10^3/uL (0.0-1.0); MONOCYTES % (AUTO) 16.8 %; NEUTROPHILS # (AUTO) 3.3 10^3/uL (1.5-6.6); NEUTROPHILS % (AUTO) 49.7 %; PLT - PLATELET COUNT 330 10^3/uL (130-450); RED BLOOD COUNT 4.63 10^6/uL (4.20-5.40); RED CELL DISTRIBUTION WIDTH 14.5 % (12.0-15.0); WHITE BLOOD COUNT 6.7 x10^3/uL (4.8-10.8)
[2023-10-22 12:14] LABS: ESTIMATED AVERAGE GLUCOSE 117 mg/dL (70-100); HEMOGLOBIN A1c% 5.7 % (4.27-6.07)
[2023-10-22 12:19] LABS: ALBUMIN 4.1 g/dL (3.2-5.5); ALBUMIN/GLOBULIN RATIO 1.2 (1.0-2.2); ALKALINE PHOSPHATASE 82 IU/L (42-121); ALT ALANINE AMINOTRANSFERASE 6 IU/L (10-60); AST ASPARTATE AMINOTRANSFERASE 14 IU/L (10-42); BILIRUBIN,TOTAL 0.6 mg/dL (0.2-1.0); BUN - BLOOD UREA NITROGEN 14 mg/dL (6-20); CALCIUM 9.4 mg/dL (8.5-10.3); CARBON DIOXIDE - CO2 28 mmol/L (21-32); CHLORIDE 105 mmol/L (101-111); CHOL/HDL RATIO 2.7 (<4.4); CHOLESTEROL 159 mg/dL; CREATININE 0.7 mg/dL (0.6-1.3); GFR - MDRD 102 (>89); GLUCOSE 92 mg/dL (74-104); HDL CHOLESTEROL 59 mg/dL; LDL CHOLESTEROL,CALCULATED 86 mg/dL; LDL/HDL RATIO 1.5 (<4.4); POTASSIUM 3.9 mmol/L (3.5-4.5); SODIUM 139 mmol/L (135-145); TOTAL PROTEIN 7.4 g/dL (6.4-8.9); TRIGLYCERIDES 72 mg/dL (48-352); VLDL CHOLESTEROL 14 mg/dL
[2023-10-22 12:24] LABS: THYROID STIMULATING HORMONE 1.48 uIU/mL (0.34-5.60)
== END 2023-10-22 09:47 | disposition home or self-care (01) ==
LOC: LAB.N 09:46
PROVIDERS: ATTEND Nurse Practitioner
DX: R53.83 Other fatigue (principal); Z98.84 Bariatric surgery status; Z13.220 Encounter for screening for lipoid disorders; R73.03 Prediabetes; F41.9 Anxiety disorder, unspecified; F32.A Depression, unspecified
CPT/HCPCS: 36415; 80053; 80061; 82306; 82607; 82728; 83036; 83721; 84443; 85025